=== PATIENT | male | born 1965 | race Caucasian/White ===

== ENCOUNTER → 2020-01-17 11:30 | Outpatient (CLI) | payer OTHER, SELFPAY ==
[2020-01-17 12:47] LABS: Influenza A - CEPHEID Flu A NEGATIVE (NEGATIVE); Influenza B - CEPHEID Flu B NEGATIVE (NEGATIVE)
[2020-01-26 20:19] LABS: COVID19 Sendout Not Detected (Not Detected)
== END ==
PROVIDERS: Visit Provider Nurse Practitioner
DX: R68.89 Other general symptoms and signs (principal)
CPT/HCPCS: 87502; 87635

== ENCOUNTER → 2020-05-28 15:13 | Outpatient (CLI) | payer OTHER, SELFPAY ==
[2020-05-29 19:24] LABS: COVID19 Sendout Not Detected (Not Detect)
== END ==
PROVIDERS: Visit Provider Physician Assistant
DX: Z01.812 Encounter for preprocedural laboratory examination (principal)
CPT/HCPCS: 87635

== ENCOUNTER 2020-05-31 14:38 | Day surgery (SDC) | payer OTHER, SELFPAY ==
--- NOTE | 2020-05-31 12:28 | PM.OP.ENDO ---
Operative Date/Time/Diagnoses Date of procedure: 05/31/20 Pre-op diagnosis: 1. History of colon polyps 2. Screening for colon cancer 3. History of drug use Post-op diagnosis: other (1. Normal colonoscopy) Procedure & Clinicians Study performed: Colonoscopy Same procedure as scheduled: Yes Indications: 1. History of colon polyps, possible 2. Screening for colon cancer 3. History of drug use Surgeon: Angeles Gonzalez Procedure Notes SCOAP/Timeout: 16:24 Procedure in detail: ENDOSCOPIST: Angeles Gonzalez MD Sedation RN: Ofelia Ta RN Sedation start time: 4:25 p.m. Sedation end time: 3:42 p.m. PRROCEDURE: Colonoscopy INDICATIONS: 1. History of colon polyps 2. Screening for cancer 3. History of drug use MEDICATION: Levsin 0.125 mg sublingual, incremental doses of Versed and fentanyl until appropriate level sedation achieved. ASA CLASS: 2 CECAL WITHDRAWAL TIME: 8 minutes COMPLICATIONS: None. EXTENT OF PROCEDURE: Cecum. QUALITY OF PREP: Good with portions of liquid stool. PROCEDURE: Prior to insertion of the colonoscope, a digital rectal examination was accomplished with circumferential palpation of the distal rectal mucosa without significant findings being noted. The high-definition colonoscope was passed into the rectum in the usual fashion and advanced over to the cecum without difficulty. The ileocecal valve, appendiceal stoma, and medial wall all could be inspected and no abnormalities were seen. ASCENDING COLON: As the colonoscope was withdrawn, care was taken to expose and inspect the haustral folds and no abnormalities were seen. HEPATIC FLEXURE: Normal no polyps, diverticula or other abnormalities. TRANSVERSE COLON: Normal no polyps, diverticula or other abnormalities. DESCENDING COLON: Normal no polyps, diverticula or other abnormalities. SIGMOID COLON: Normal no polyps, diverticula or other abnormalities. RECTUM: Normal. J maneuver was produced. There was no significant perianal disease. The J maneuver was broken. The remainder of the rectum was inspected and there was no external hemorrhoid disease. The scope was withdrawn. IMPRESSION: 1. Normal colonoscopy PLAN: 1. Repeat colonoscopy in 10 years. The possibility of a missed lesion including a malignancy has been discussed with the patient previously. Potential alarm symptoms have been discussed and should be reported immediately. Complications: none Post-procedure Recommendations: Colonscopy in 10 years Follow up: as needed Disposition: PACU
[2020-05-31] MEDS: HYOSCYAMINE 0.125 MG TABLET PO (14:55)
[2020-05-31 14:57] VITALS: BP 132/79; PULSE 84; RESP 16; TEMP 35.9; O2SAT 100; BMI 25.7
[2020-05-31] MEDS: LACTATED RINGERS 1,000 ML 200 ML IV (15:04)
[2020-05-31] MEDS: fentaNYL 250 MCG/5 ML INJ IV (16:46)
[2020-05-31] MEDS: MIDAZOLAM 5 MG/5 ML VIAL IV (16:47)
[2020-05-31 16:48] VITALS: BP 126/84; PULSE 67; RESP 12; TEMP 36.1; O2SAT 96
[2020-05-31 16:53] VITALS: BP 120/78; PULSE 66; RESP 10; O2SAT 93
--- NOTE | 2020-05-31 16:55 | SUR.PHASEI ---
Received to PACU at 1653 after MAC anesthesia. Airway patent, self maintained. Report received from ANTONIO Gilbert.
[2020-05-31 16:58] VITALS: BP 133/89; PULSE 77; RESP 18; O2SAT 96
[2020-05-31 17:03] VITALS: BP 133/85; PULSE 83; RESP 14; TEMP 36.1; O2SAT 97
[2020-05-31 17:18] VITALS: BP 118/82; PULSE 65; RESP 10; TEMP 36.1; O2SAT 97
== END 2020-05-31 17:25 | disposition home or self-care (01) ==
PROVIDERS: PCP Family Medicine; Referring Provider Student in an Organized Health Care Education/Training Program; Visit Provider Student in an Organized Health Care Education/Training Program
PROC: 0DJD8ZZ Inspection of Lower Intestinal Tract, Via Natural or Artificial Opening Endoscopic (ICD-10-PCS; CPT 45378; principal; 2020-05-31 15:30)
DX: Z12.11 Encounter for screening for malignant neoplasm of colon (principal); F19.11 Other psychoactive substance abuse, in remission
CPT/HCPCS: 45378; J2250; J3010

== ENCOUNTER → 2020-11-12 11:28 | Outpatient (CLI) | payer OTHER, SELFPAY ==
[2020-11-12 12:26] LABS: COVID19 -Nasal RAPID Negative (Negative)
--- NOTE | 2020-11-12 14:03 | DI.RAD.S_ITS ---
PROCEDURE: XR CHEST 2V INDICATIONS: cough x1.5 wks, chest tightness TECHNIQUE: 2 views of the chest were acquired. COMPARISON: [facility], CR, XR CHEST 1 VIEW, 03/21/2018, 10:17. FINDINGS: Surgical changes and devices: None. Lungs and pleura: Lungs are clear. No pleural effusions or pneumothorax. Mediastinum: Mediastinal contours are normal. Heart size is normal. Bones and chest wall: No suspicious bony abnormalities. Soft tissues appear unremarkable. IMPRESSION: No acute cardiopulmonary disease process. Dictated by: Laura Pompa MD, PhD on 11/12/2020 at 14:27 Approved by: Laura Pompa MD, PhD on 11/12/2020 at 14:28
[2020-11-12 14:18] LABS: Add Manual Diff / Slide Review NO; Basophils Absolute Auto 100 /uL (0-100); Basophils Percent Auto 1.7 % (0-2); Eosinophils Absolute Auto 200 /uL (0-450); Eosinophils Percent Auto 2.7 % (2-4); Hematocrit 46.1 % (41-53); Hemoglobin 16.4 g/dL (13.5-17.5); Lymphocytes Absolute Auto 1300 /uL (1100-4500); Lymphocytes Percent Auto 20.3 % (25-40); Mean Corpuscular HGB Conc 35.6 % (30-36); Mean Corpuscular Hemoglobin 32.4 PG (26-34); Monocytes Absolute Auto 500 /uL (0-900); Monocytes Percent Auto 8.3 % (3-14); Neutrophils Absolute Auto 4300 /uL (1500-7000); Platelet Count 179 X10^3/uL (150-400); Red Blood Cell Count 5.06 X10^6/uL (4.5-5.9); White Blood Cell Count 6.5 X10^3/uL (4.5-11.0)
[2020-11-12 14:34] LABS: Alanine Aminotransferase 21 IU/L (<50); Albumin 4.3 g/dL (3.5-5.0); Albumin Globulin Ratio 1.7 (1.0-2.8); Alkaline Phosphatase 77 U/L (38-126); Aspartate Aminotransferase 23 IU/L (17-59); BUN Creatinine Ratio 16.3 (6-22); Bilirubin Total 1.1 mg/dL (0.2-1.3); Blood Urea Nitrogen 16 mg/dL (9-20); Carbon Dioxide 34 mmol/L (22-32); Chloride 100 mmol/L (98-107); Creatine Kinase 38 U/L (55-170); Estimated Glomerular Filt Rate > 60.0 mL/min (>60); Globulin 2.5 g/dL (1.7-4.1); Glucose 153 mg/dL (70-100); HEMOLYSIS < 15 (0-50); Potassium 3.9 mmol/L (3.4-5.1); Sodium 138 mmol/L (137-145); Total Protein 6.8 g/dL (6.3-8.2)
[2020-11-12 14:45] LABS: NT-proBNP (BNP-Adult 18+) 21 pg/mL (<125); Troponin I < 0.012 ng/mL (0.01-0.034)
== END ==
PROVIDERS: PCP Family Medicine; Referring Provider Physician Assistant; Visit Provider Physician Assistant
DX: Z20.822 Contact with and (suspected) exposure to COVID-19 (principal); R05 Cough; R07.89 Other chest pain
CPT/HCPCS: 36415; 71046; 80053; 82550; 83880; 84484; 85025; 87635

== ENCOUNTER → 2021-07-08 13:26 | Outpatient (CLI) | payer OTHER, SELFPAY ==
--- NOTE | 2021-07-08 13:30 | DI.RAD.S_ITS ---
PROCEDURE: XR CHEST 2V INDICATIONS: cough, chest tightness TECHNIQUE: 2 views of the chest were acquired. COMPARISON: [facility], CR, XR CHEST 1 VIEW, 03/21/2018, 10:17. [facility], CR, XR CHEST 2V, 11/12/2020, 14:17. FINDINGS: Surgical changes and devices: None. Lungs and pleura: Lungs are clear. No pleural effusions or pneumothorax. Mediastinum: Mediastinal contours are normal. Heart size is normal. Bones and chest wall: No suspicious bony abnormalities. Age-appropriate bony degenerative changes are seen. Soft tissues appear unremarkable. IMPRESSION: No acute cardiopulmonary process is seen. No focal infiltrates are seen. Dictated by: Jose Antonio Olson M.D. on 07/08/2021 at 13:20 Approved by: Jose Antonio Olson M.D. on 07/08/2021 at 13:26
[2021-07-08 13:50] LABS: Add Manual Diff / Slide Review NO; Basophils Absolute Auto 0 /uL (0-100); Basophils Percent Auto 0.5 % (0-2); Eosinophils Absolute Auto 100 /uL (0-450); Eosinophils Percent Auto 1.1 % (2-4); Hematocrit 47.3 % (41-53); Hemoglobin 16.6 g/dL (13.5-17.5); Lymphocytes Absolute Auto 1300 /uL (1100-4500); Lymphocytes Percent Auto 19.3 % (25-40); Mean Corpuscular HGB Conc 35.1 % (30-36); Mean Corpuscular Volume 91.3 fL (80-100); Monocytes Absolute Auto 600 /uL (0-900); Monocytes Percent Auto 8.6 % (3-14); Neutrophils Absolute Auto 4600 /uL (1500-7000); Neutrophils Percent Auto 70.5 % (50-75); Platelet Count 175 X10^3/uL (150-400); Red Blood Cell Count 5.18 X10^6/uL (4.5-5.9); White Blood Cell Count 6.6 X10^3/uL (4.5-11.0)
[2021-07-08 14:10] LABS: Alanine Aminotransferase 25 IU/L (<50); Albumin 4.7 g/dL (3.5-5.0); Alkaline Phosphatase 75 U/L (38-126); Aspartate Aminotransferase 29 IU/L (17-59); Bilirubin Total 1.1 mg/dL (0.2-1.3); Blood Urea Nitrogen 15 mg/dL (9-20); Calcium 9.7 mg/dL (8.4-10.2); Carbon Dioxide 30 mmol/L (22-32); Chloride 102 mmol/L (98-107); Creatine Kinase 34 U/L (55-170); Estimated Glomerular Filt Rate > 60.0 mL/min (>60); Globulin 2.4 g/dL (1.7-4.1); Glucose 91 mg/dL (70-100); HEMOLYSIS < 15 (0-50); Potassium 4.4 mmol/L (3.4-5.1); Sodium 139 mmol/L (137-145); Total Protein 7.1 g/dL (6.3-8.2)
[2021-07-08 14:21] LABS: NT-proBNP (BNP-Adult 18+) 18 pg/mL (<125); Troponin I < 0.012 ng/mL (0.01-0.034)
== END ==
PROVIDERS: PCP Family Medicine; Referring Provider Physician Assistant; Visit Provider Physician Assistant
DX: R05 Cough (principal); R07.89 Other chest pain
CPT/HCPCS: 36415; 71046; 80053; 82550; 83880; 84484; 85025

== ENCOUNTER 2021-07-15 16:20 | Emergency (ER) | payer OTHER, SELFPAY ==
[2021-07-15 16:24] VITALS: BP 146/83; PULSE 75; RESP 18; TEMP 36.7; O2SAT 99
--- NOTE | 2021-07-15 16:29 | DI.RAD.S_ITS ---
PROCEDURE: XR CHEST 2V INDICATIONS: Cough TECHNIQUE: 2 views of the chest were acquired. COMPARISON: [facility], CR, XR CHEST 2V, 07/08/2021, 13:39. FINDINGS: Surgical changes and devices: None. Lungs and pleura: Lungs are clear. No pleural effusions or pneumothorax. Mediastinum: Mediastinal contours are normal. Heart size is normal. Bones and chest wall: No suspicious bony abnormalities. Soft tissues appear unremarkable. IMPRESSION: No acute cardiopulmonary process demonstrated radiographically. Dictated by: Earl Figueroa M.D. on 07/15/2021 at 16:50 Approved by: Earl Figueroa M.D. on 07/15/2021 at 16:50
[2021-07-15 18:21] LABS: Add Manual Diff / Slide Review NO; Basophils Absolute Auto 100 /uL (0-100); Basophils Percent Auto 0.9 % (0-2); Eosinophils Absolute Auto 100 /uL (0-450); Hematocrit 47.2 % (41-53); Hemoglobin 16.7 g/dL (13.5-17.5); Lymphocytes Absolute Auto 1800 /uL (1100-4500); Lymphocytes Percent Auto 24.5 % (25-40); Mean Corpuscular HGB Conc 35.3 % (30-36); Mean Corpuscular Hemoglobin 32.2 PG (26-34); Mean Corpuscular Volume 91.3 fL (80-100); Monocytes Absolute Auto 700 /uL (0-900); Monocytes Percent Auto 9.3 % (3-14); Neutrophils Absolute Auto 4600 /uL (1500-7000); Neutrophils Percent Auto 63.3 % (50-75); Platelet Count 186 X10^3/uL (150-400); Red Blood Cell Count 5.17 X10^6/uL (4.5-5.9); Red Cell Distribution Width 12.9 % (11.6-14.8); White Blood Cell Count 7.3 X10^3/uL (4.5-11.0)
[2021-07-15 18:32] LABS: Alanine Aminotransferase 24 IU/L (<50); Albumin 4.7 g/dL (3.5-5.0); Albumin Globulin Ratio 1.7 (1.0-2.8); Alkaline Phosphatase 82 U/L (38-126); Aspartate Aminotransferase 28 IU/L (17-59); Bilirubin Total 1.1 mg/dL (0.2-1.3); Blood Urea Nitrogen 15 mg/dL (9-20); Calcium 9.3 mg/dL (8.4-10.2); Carbon Dioxide 30 mmol/L (22-32); Chloride 102 mmol/L (98-107); Creatine Kinase 42 U/L (55-170); Estimated Glomerular Filt Rate > 60.0 mL/min (>60); Globulin 2.8 g/dL (1.7-4.1); Glucose 98 mg/dL (70-100); HEMOLYSIS < 15 (0-50); Lipase 48 U/L (23-300); Potassium 4.9 mmol/L (3.4-5.1); Sodium 139 mmol/L (137-145); Total Protein 7.5 g/dL (6.3-8.2)
[2021-07-15 18:43] LABS: Troponin I < 0.012 ng/mL (0.01-0.034)
[2021-07-15 18:58] LABS: NT-proBNP (BNP-Adult 18+) 23 pg/mL (<125)
[2021-07-15 21:05] VITALS: BP 133/77; PULSE 70; O2SAT 98
[2021-07-15 21:08] VITALS: BP 133/77; PULSE 71; O2SAT 99
[2021-07-15 21:19] LABS: COVID19 -Nasal RAPID Negative (Negative)
[2021-07-15 21:30] VITALS: PULSE 71; O2SAT 98
--- NOTE | 2021-07-15 21:39 | ED_ITS ---
HPI - General Adult General Chief complaint: Upper Respiratory Symptoms Stated complaint: congestion/fatigued x30 days Time Seen by Provider: 07/15/21 21:38 Source: patient Mode of arrival: Ambulatory History of Present Illness HPI narrative: 56-year-old gentleman on no current medications with a very distant history of IV drug use, hepatitis C treated in 2005 with resolution presents with fatigue, cough, a sense of congestion without actually any nasal or sinus discharge, feeling that he is hoarse with occasional flushing this has been going on for a month now. He has had 4- COVID tests. He describes some exertional dyspnea as well as some orthopnea neither symptom are consistent. He has not had any vomiting, abdominal pain or diarrhea. He reports no headaches, vision changes, numbness or tingling or any localizing weakness. He has had no palpitations. He describes no significant abdominal pain, change to bowel or bladder habits notes that he has had a screening colonoscopy that was unremarkable. He has been tested for HIV with his main risk factor being his distant IV drug use. Related Data Previous Rx's Medication Instructions Recorded albuterol sulfate 90 mcg/actuation 2 puff INHALATION Q4-6H PRN #8.5 g 11/13/20 aerosol inhaler Allergies Allergy/AdvReac Type Severity Reaction Status Date / Time acetaminophen [From Tylenol] Allergy Severe facial Verified 07/08/21 12:24 swelling, trouble breathing opiates AdvReac Mild Depression Uncoded 07/08/21 12:24 Review of Systems Review of Systems Narrative: Remainder of complete review of systems is otherwise unremarkable except for that included in the HPI. Patient History Medical History Chest tightness Social History household members: children Smoking Status: Former smoker alcohol intake: never Smoking Status: Former smoker Substance Use Type: does not use Exam Narrative Exam Narrative: General: Healthy appearing, in no acute distress. Able to give a complete and coherent history. Well-nourished well-developed HEENT: Moist mucous membranes, normal sclera with reactive pupils, slightly erythematous posterior pharynx and uvula. No cervical adenopathy Neck: No JVD, supple, no supraclavicular adenopathy Respiratory: Lungs are clear to auscultation, no wheezing no rales no rhonchi. Full and symmetrical air movement Cardiac: Regular rate and rhythm no murmurs no bruits Abdomen: Soft, nontender, good bowel tones, no hepatosplenomegaly, no flank pain. No inguinal adenopathy Skin: Warm and dry, no rashes Neurologic: Grossly neurologically intact with no obvious asymmetries or abnormalities Extremities: No trauma, well perfused, no lower extremity edema Psych: Cooperative, appropriate insight and affect Initial Vital Signs Initial Vital Signs: Vital Signs Temperature 98.1 F 07/15/21 16:24 Pulse Rate 75 07/15/21 16:24 Respiratory Rate 18 07/15/21 16:24 Blood Pressure 146/83 H 07/15/21 16:24 Pulse Oximetry 99 07/15/21 16:24 Course Orders Ordered: ED Orders 07/15/21 17:39 EKG-12 Lead Stat 07/15/21 18:09 BNP [NT-proBNP (BNP-Adult 18+)] Stat Complete Blood Count AUTO DIFF Stat Comprehensive Metabolic Panel Stat Lipase Stat Thyroid Stimulating Hormone Stat Troponin & CK Cardiac Panel Stat 07/15/21 20:39 COVID19 -Nasal swab/Pre-Proc Stat 07/15/21 22:01 Respiratory Panel (Film Array) Stat Vital Signs Vital signs: Vital Signs - 8 hr 07/15/21 21:05 07/15/21 21:08 07/15/21 21:30 Pulse Rate 70 71 71 Blood Pressure 133/77 133/77 Pulse Oximetry 98 99 98 07/15/21 22:00 Pulse Rate 72 Blood Pressure 138/96 H Pulse Oximetry 99 Medical Decision Making Lab Data Result diagrams: 07/15/21 18:09 07/15/21 18:09 Labs: Lab Results 07/15/21 07/15/21 07/15/21 Range/Units 18:09 18:09 18:09 WBC 7.3 (4.5-11.0) X10^3/uL RBC 5.17 (4.5-5.9) X10^6/uL Hgb 16.7 (13.5-17.5) g/dL Hct 47.2 (41-53) % MCV 91.3 (80-100) fL MCH 32.2 (26-34) PG MCHC 35.3 (30-36) % RDW 12.9 (11.6-14.8) % Plt Count 186 (150-400) X10^3/uL Neut % (Auto) 63.3 (50-75) % Lymph % (Auto) 24.5 L (25-40) % [place] % (Auto) 9.3 (3-14) % Eos % (Auto) 2.0 (2-4) % Baso % (Auto) 0.9 (0-2) % Neut # (Auto) 4600 (7635-0282) /uL Lymph # (Auto) 1800 (6825-5818) /uL [place] # (Auto) 700 (0-900) /uL Eos # (Auto) 100 (0-450) /uL Baso # (Auto) 100 (0-100) /uL Sodium 139 (137-145) mmol/L Potassium 4.9 (3.4-5.1) mmol/L Chloride 102 (98-107) mmol/L Carbon Dioxide 30 (22-32) mmol/L BUN 15 (9-20) mg/dL Creatinine 0.94 (0.66-1.25) mg/dL Estimated GFR > 60.0 (>60) mL/min BUN/Creatinine Ratio 16.0 (6-22) Glucose 98 (70-100) mg/dL Calcium 9.3 (8.4-10.2) mg/dL Total Bilirubin 1.1 (0.2-1.3) mg/dL AST 28 (17-59) IU/L ALT 24 (<50) IU/L Alkaline Phosphatase 82 (38-126) U/L Total Creatine Kinase 42 L (55-170) U/L CK-MB (CK-2) TNP CK-MB (CK-2) Rel Index TNP Troponin I < 0.012 (0.01-0.034) ng/mL NT-Pro-B Natriuret Pep 23 (<125) pg/mL Total Protein 7.5 (6.3-8.2) g/dL Albumin 4.7 (3.5-5.0) g/dL Globulin 2.8 (1.7-4.1) g/dL Albumin/Globulin Ratio 1.7 (1.0-2.8) Lipase 48 (23-300) U/L TSH (0.47-4.68) uIU/mL Chlamy pneumoniae PCR (Not Detect) Adenovirus (PCR) (Not Detect) B. pertussis DNA (PCR) (Not Detecte) B.parapertussis DNA PCR (Not Detecte) Coronavirus OC43 (PCR) (Not Detect) Coronavirus HKU1 (PCR) (Not Detect) Coronavirus 229E (PCR) (Not Detect) SARS-CoV-2 (PCR) (Negative) Coronavirus NL63 (PCR) (Not Detect) Human Metapneumovir PCR (Not Detect) Influenza Type A (PCR) (Not Detect) Influenza Type B (PCR) (Not Detect) M. pneumoniae (PCR) (Not Detect) Parainfluenza 1 (PCR) (Not Detect) Parainfluenza 2 (PCR) (Not Detect) Parainfluenza 3 (PCR) (Not Detect) Parainfluenza 4 (PCR) (Not Detect) RSV (PCR) (Not Detect) Entero/Rhino (PCR) (Not Detect) 07/15/21 07/15/21 07/15/21 Range/Units 18:09 20:39 22:01 WBC (4.5-11.0) X10^3/uL RBC (4.5-5.9) X10^6/uL Hgb (13.5-17.5) g/dL Hct (41-53) % MCV (80-100) fL MCH (26-34) PG MCHC (30-36) % RDW (11.6-14.8) % Plt Count (150-400) X10^3/uL Neut % (Auto) (50-75) % Lymph % (Auto) (25-40) % [place] % (Auto) (3-14) % Eos % (Auto) (2-4) % Baso % (Auto) (0-2) % Neut # (Auto) (1020-9433) /uL Lymph # (Auto) (0225-8107) /uL [place] # (Auto) (0-900) /uL Eos # (Auto) (0-450) /uL Baso # (Auto) (0-100) /uL Sodium (137-145) mmol/L Potassium (3.4-5.1) mmol/L Chloride (98-107) mmol/L Carbon Dioxide (22-32) mmol/L BUN (9-20) mg/dL Creatinine (0.66-1.25) mg/dL Estimated GFR (>60) mL/min BUN/Creatinine Ratio (6-22) Glucose (70-100) mg/dL Calcium (8.4-10.2) mg/dL Total Bilirubin (0.2-1.3) mg/dL AST (17-59) IU/L ALT (<50) IU/L Alkaline Phosphatase (38-126) U/L Total Creatine Kinase (55-170) U/L CK-MB (CK-2) CK-MB (CK-2) Rel Index Troponin I (0.01-0.034) ng/mL NT-Pro-B Natriuret Pep (<125) pg/mL Total Protein (6.3-8.2) g/dL Albumin (3.5-5.0) g/dL Globulin (1.7-4.1) g/dL Albumin/Globulin Ratio (1.0-2.8) Lipase (23-300) U/L TSH 2.58 (0.47-4.68) uIU/mL Chlamy pneumoniae PCR Not detected (Not Detect) Adenovirus (PCR) Not detected (Not Detect) B. pertussis DNA (PCR) Not detected (Not Detecte) B.parapertussis DNA PCR Not detected (Not Detecte) Coronavirus OC43 (PCR) Not detected (Not Detect) Coronavirus HKU1 (PCR) Not detected (Not Detect) Coronavirus 229E (PCR) Not detected (Not Detect) SARS-CoV-2 (PCR) Negative Not detected (Negative) Coronavirus NL63 (PCR) Not detected (Not Detect) Human Metapneumovir PCR Not detected (Not Detect) Influenza Type A (PCR) Not detected (Not Detect) Influenza Type B (PCR) Not detected (Not Detect) M. pneumoniae (PCR) Not detected (Not Detect) Parainfluenza 1 (PCR) Not detected (Not Detect) Parainfluenza 2 (PCR) Not detected (Not Detect) Parainfluenza 3 (PCR) Not detected (Not Detect) Parainfluenza 4 (PCR) Not detected (Not Detect) RSV (PCR) Not detected (Not Detect) Entero/Rhino (PCR) Not detected (Not Detect) Imaging Data Chest x-ray: Radiologist's Impression: FINDINGS: Surgical changes and devices: None. Lungs and pleura: Lungs are clear. No pleural effusions or pneumothorax. Mediastinum: Mediastinal contours are normal. Heart size is normal. Bones and chest wall: No suspicious bony abnormalities. Soft tissues appear unremarkable. IMPRESSION: No acute cardiopulmonary process demonstrated radiographically. Dictated by: Earl Figueroa M.D. on 07/15/2021 at 16:50 ECG Data Interpretation: Sinus rhythm at a rate of 73 Normal intervals, normal axis No acute ischemic changes MDM Narrative Medical decision making narrative: 56-year-old gentleman with a month of fatigue cough congestion and recurrent episodes of feeling flushed. With the intermittent hoarseness and symptoms as described some type of upper respiratory etiology seems most likely however symptoms lasting a month at this point seems a bit extreme. Will add a full respiratory panel to the blood work done today. Alternate explanations are not supported by current labs. No evidence of a nemia, heart failure, renal failure, liver failure, electrolyte abnormalities. No evidence acute coronary syndrome. Thyroid will be added to current labs but aside from the fatigue has no other symptoms of hypothyroidism. Careful clinical exam does not suggest other pathology or neoplastic processes that might deserve further workup. At this point, still the most likely etiology is resolving viral infection. Will contact him with results respiratory panel. Will ask her to follow-up with his primary care physician, Dr. Barnes. If he is continuing to have the fatigue and exertional dyspnea perhaps outpatient stress testing could be considered. At this time no life-threatening etiology is identified. He is safe for home discharge Discharge Plan Departure Patient Disposition: Home Clinical Impression: Cough Fatigue Qualifiers: Fatigue type: chronic, unspecified Qualified Code(s): R53.82 - Chronic fatigue, unspecified Instructions: DI for Fatigue Activity Restrictions/Additional Instructions: Thank you for coming in today Fortunately, I did not find a life-threatening explanation for your symptoms. Specifically of this is not COVID, I will let you know if the remainder of the respiratory panel suggests and another viral cause. I did not find any evidence for anemia, heart failure or acute coronary syndrome, no kidney or liver problems and your clinical exam does not suggest any specific cancer type finding that might explain your symptoms. With the cough and the hoarseness, an extended virus is still far and away the most likely diagnosis. Please do schedule appointment with Dr. Barnes to follow-up Prescriptions: No Action albuterol sulfate 90 mcg/actuation HFA aerosol inhaler 2 puff inhalation Q4-6H PRN (Reason: bronchospasm) Qty: 8.5 RF: 0 Referrals: Ness Barnes MD [Primary Care Provider] -
[2021-07-15 22:00] VITALS: BP 138/96; PULSE 72; O2SAT 99
[2021-07-15 22:40] LABS: Thyroid Stimulating Hormone 2.58 uIU/mL (0.47-4.68)
[2021-07-15 23:25] LABS: Adenovirus Not Detected (Not Detect); B. parapertussis Not Detected (Not Detecte); Bordetella pertussis Not Detected (Not Detecte); Chlamydophila pneumoniae Not Detected (Not Detect); Coronavirus 229E Not Detected (Not Detect); Coronavirus HKU1 Not Detected (Not Detect); Coronavirus NL 63 Not Detected (Not Detect); Coronavirus OC43 Not Detected (Not Detect); Human Metapneumovirus Not Detected (Not Detect); Human Rhinovirus/Enterovirus Not Detected (Not Detect); Influenza A Not Detected (Not Detect); Influenza B Not Detected (Not Detect); Mycoplasma pneumoniae Not Detected (Not Detect); Parainfluenza Virus 1 Not Detected (Not Detect); Parainfluenza Virus 2 Not Detected (Not Detect); Parainfluenza Virus 3 Not Detected (Not Detect); Parainfluenza Virus 4 Not Detected (Not Detect); Respiratory Syncytial Virus Not Detected (Not Detect); SARS- CoV-2 Not Detected (Not Detecte)
== END 2021-07-15 22:13 | disposition home or self-care (01) ==
PROVIDERS: Emergency Medicine; Emergency Provider Emergency Medicine; PCP Family Medicine
DX: R05 Cough (principal); R53.82 Chronic fatigue, unspecified; R06.00 Dyspnea, unspecified; R07.9 Chest pain, unspecified; Z20.822 Contact with and (suspected) exposure to COVID-19
CPT/HCPCS: 71046; 80053; 82550; 83690; 83880; 84443; 84484; 85025; 87633; 87635; 93005; 93010; 99283; 99284; C9803

== ENCOUNTER 2021-07-22 08:20 | Emergency (ER) | payer OTHER, SELFPAY ==
--- NOTE | 2021-07-22 08:27 | DI.RAD.S_ITS ---
PROCEDURE: XR CHEST 1V INDICATIONS: Cough, fatigue, shortness of breath TECHNIQUE: One view of the chest was acquired. COMPARISON: [facility], CR, XR CHEST 2V, 07/15/2021, 16:25. FINDINGS: Surgical changes and devices: None. Lungs and pleura: Lungs are clear. No pleural effusions or pneumothorax. Mediastinum: Mediastinal contours appear normal. Heart size is normal. Bones and chest wall: No suspicious bony lesions. Overlying soft tissues appear unremarkable. IMPRESSION: No acute cardiopulmonary pathology. Dictated by: Guicho Gonzalez M.D. on 07/22/2021 at 8:53 Approved by: Guicho Gonzalez M.D. on 07/22/2021 at 8:53
[2021-07-22 08:33] VITALS: BP 177/101; PULSE 73; RESP 12; TEMP 36.7; O2SAT 98; BMI 25.7
[2021-07-22 08:38] VITALS: PULSE 69; RESP 21; O2SAT 98
[2021-07-22 08:40] LABS: Add Manual Diff / Slide Review NO; Basophils Absolute Auto 100 /uL (0-100); Basophils Percent Auto 1.4 % (0-2); Eosinophils Absolute Auto 100 /uL (0-450); Eosinophils Percent Auto 2.3 % (2-4); Hematocrit 45.4 % (41-53); Hemoglobin 15.9 g/dL (13.5-17.5); Lymphocytes Absolute Auto 1500 /uL (1100-4500); Lymphocytes Percent Auto 25.7 % (25-40); Mean Corpuscular Hemoglobin 31.9 PG (26-34); Mean Corpuscular Volume 91.1 fL (80-100); Monocytes Absolute Auto 500 /uL (0-900); Monocytes Percent Auto 8.9 % (3-14); Neutrophils Absolute Auto 3600 /uL (1500-7000); Neutrophils Percent Auto 61.7 % (50-75); Platelet Count 162 X10^3/uL (150-400); Red Blood Cell Count 4.99 X10^6/uL (4.5-5.9); Red Cell Distribution Width 12.9 % (11.6-14.8); White Blood Cell Count 5.8 X10^3/uL (4.5-11.0)
--- NOTE | 2021-07-22 08:49 | PC.NURSE ---
Reports significant dizziness, worse with changes in position and head from side to side. Patient states he feels fatigued just standing in place. Left chest pain worse in last three days. Has outpatient cardiac tests this week and appt with PCP tomorrow. Patient states he is currently on abx for ear infection.
--- NOTE | 2021-07-22 08:51 | ED.CHESTPAIN ---
HPI - Chest Pain General Chief Complaint: Chest Pain Stated Complaint: chest pain/tightness, labored breath, fatigue Time Seen by Provider: 07/22/21 08:25 Source: patient Mode of arrival: Ambulatory History of Present Illness HPI narrative: Patient is a 56-year-old male who is here for evaluation of left-sided chest tightness to, fatigue, ringing in his ears, lightheadedness, labored breathing. His symptoms have been going on for least the past month. He has been seen here in the emergency department in the past and discharged home. He has talk with his primary doctor. He is scheduled for a ?lung test ?and a ultrasound of his heart later this week. There was also discussion about a stress test. He is currently on antibiotics for an ear infection that was prescribed by his primary doctor. He states that the symptoms that he presents with today are the same symptoms he has been having over the past month just this morning things seemed to get worse. Related Data Previous Rx's Medication Instructions Recorded albuterol sulfate 90 mcg/actuation 2 puff INHALATION Q4-6H PRN #8.5 g 11/13/20 aerosol inhaler Allergies Allergy/AdvReac Type Severity Reaction Status Date / Time acetaminophen [From Tylenol] Allergy Severe facial Verified 07/22/21 08:35 swelling, trouble breathing opiates AdvReac Mild Depression Uncoded 07/22/21 08:35 Review of Systems Constitutional Constitutional: Reports fatigue, Denies fever(s) and Reports malaise Eyes Eyes: Reports system reviewed and no additional complaints, except as documented ENT Comments: Tinnitus that is not new Cardiovascular Cardiovascular: Reports as per HPI and Reports system reviewed and no additional complaints, except as documented Respiratory Respiratory: Reports as per HPI and Reports system reviewed and no additional complaints, except as documented Gastrointestinal Gastrointestinal: Reports as per HPI and Reports system reviewed and no additional complaints, except as documented Genitourinary Genitourinary: Reports system reviewed and no additional complaints, except as documented Musculoskeletal Musculoskeletal: Reports system reviewed and no additional complaints, except as documented Integumentary/Breasts Skin/Breast: Reports system reviewed and no additional complaints, except as documented Neurologic Neurologic: Reports system reviewed and no additional complaints, except as documented Endocrine Endocrine: Reports fatigue Hematologic/Lymphatic On Anticoagulants: No Allergic/Immunologic Allergic/Immunologic: Reports system reviewed and no additional complaints, except as documented Patient History Medical History Chest tightness Social History household members: children Smoking Status: Former smoker alcohol intake: never Smoking Status: Former smoker Substance Use Type: does not use Exam Initial Vital Signs Initial Vital Signs: Vital Signs Temperature 98.0 F 07/22/21 08:33 Pulse Rate 73 07/22/21 08:33 Respiratory Rate 12 07/22/21 08:33 Blood Pressure 177/101 H 07/22/21 08:33 Pulse Oximetry 98 07/22/21 08:33 Const General: cooperative, healthy appearing, comfortable and well developed [facility] Head: normal to inspection and normocephalic Eyes General: appearance normal, both eyes and all related structures Chest Chest: normal inspection of the chest, No crepitus and No tenderness Resp Effort & Inspection: normal respiratory effort, not labored and not tachypneic Auscultation: clear to auscultation bilaterally Cardio Rate: regular rate Rhythm: regular rhythm GI Inspection: normal to inspection Palpation: soft, No firm and No tender Back/Spine/Pelvis Back: normal to inspection Skin Lesions: no lesions Rashes: no rashes Neuro General: patient alert, patient awake, patient oriented x3 and moves all extremities Extrem General: normal to inspection and No edema Psych Appearance: grossly normal and well kempt Course Orders Ordered: ED Orders 07/22/21 08:26 Complete Blood Count AUTO DIFF Stat 07/22/21 08:27 XR chest 1V Stat Lipase Stat NT-proBNP (BNP-Adult 18+) Stat Respiratory Panel (Film Array) Stat Troponin & CK Cardiac Panel Stat EKG-12 Lead Stat 07/22/21 08:50 Comprehensive Metabolic Panel Stat Ethanol (ETOH) Stat Vital Signs Vital signs: Vital Signs - 8 hr 07/22/21 08:33 Temperature 98.0 F Pulse Rate 73 Respiratory Rate 12 Blood Pressure 177/101 H Pulse Oximetry 98 MDM - Chest Pain Medical Records Data Attestation: I reviewed the patient's medical records. Lab Data Attestation: I reviewed the patient's lab results. Result diagrams: 07/22/21 08:26 07/22/21 08:50 Labs: Lab Results 07/22/21 07/22/21 07/22/21 Range/Units 08:26 08:27 08:50 WBC 5.8 (4.5-11.0) X10^3/uL RBC 4.99 (4.5-5.9) X10^6/uL Hgb 15.9 (13.5-17.5) g/dL Hct 45.4 (41-53) % MCV 91.1 (80-100) fL MCH 31.9 (26-34) PG MCHC 35.0 (30-36) % RDW 12.9 (11.6-14.8) % Plt Count 162 (150-400) X10^3/uL Neut % (Auto) 61.7 (50-75) % Lymph % (Auto) 25.7 (25-40) % Eaton % (Auto) 8.9 (3-14) % Eos % (Auto) 2.3 (2-4) % Baso % (Auto) 1.4 (0-2) % Neut # (Auto) 3600 (8417-1624) /uL Lymph # (Auto) 1500 (6779-8252) /uL Eaton # (Auto) 500 (0-900) /uL Eos # (Auto) 100 (0-450) /uL Baso # (Auto) 100 (0-100) /uL Sodium 141 (137-145) mmol/L Potassium 3.8 (3.4-5.1) mmol/L Chloride 103 (98-107) mmol/L Carbon Dioxide 33 H (22-32) mmol/L BUN 18 (9-20) mg/dL Creatinine 0.98 (0.66-1.25) mg/dL Estimated GFR > 60.0 (>60) mL/min BUN/Creatinine Ratio 18.4 (6-22) Glucose 94 (70-100) mg/dL Calcium 9.4 (8.4-10.2) mg/dL Total Bilirubin 1.2 (0.2-1.3) mg/dL AST 33 (17-59) IU/L ALT 18 (<50) IU/L Alkaline Phosphatase 77 (38-126) U/L Total Creatine Kinase 38 L (55-170) U/L CK-MB (CK-2) TNP CK-MB (CK-2) Rel Index TNP Troponin I < 0.012 (0.01-0.034) ng/mL NT-Pro-B Natriuret Pep 32 (<125) pg/mL Total Protein 7.0 (6.3-8.2) g/dL Albumin 4.4 (3.5-5.0) g/dL Globulin 2.6 (1.7-4.1) g/dL Albumin/Globulin Ratio 1.7 (1.0-2.8) Lipase 70 (23-300) U/L Ethyl Alcohol < 10 ( - 10) mg/dL Chlamy pneumoniae PCR (Not Detect) Adenovirus (PCR) (Not Detect) B. pertussis DNA (PCR) (Not Detecte) B.parapertussis DNA PCR (Not Detecte) Coronavirus OC43 (PCR) (Not Detect) Coronavirus HKU1 (PCR) (Not Detect) Coronavirus 229E (PCR) (Not Detect) SARS-CoV-2 (PCR) (Not Detecte) Coronavirus NL63 (PCR) (Not Detect) Human Metapneumovir PCR (Not Detect) Influenza Type A (PCR) (Not Detect) Influenza Type B (PCR) (Not Detect) M. pneumoniae (PCR) (Not Detect) Parainfluenza 1 (PCR) (Not Detect) Parainfluenza 2 (PCR) (Not Detect) Parainfluenza 3 (PCR) (Not Detect) Parainfluenza 4 (PCR) (Not Detect) RSV (PCR) (Not Detect) Entero/Rhino (PCR) (Not Detect) 07/22/21 Range/Units 08:53 WBC (4.5-11.0) X10^3/uL RBC (4.5-5.9) X10^6/uL Hgb (13.5-17.5) g/dL Hct (41-53) % MCV (80-100) fL MCH (26-34) PG MCHC (30-36) % RDW (11.6-14.8) % Plt Count (150-400) X10^3/uL Neut % (Auto) (50-75) % Lymph % (Auto) (25-40) % Eaton % (Auto) (3-14) % Eos % (Auto) (2-4) % Baso % (Auto) (0-2) % Neut # (Auto) (3389-8524) /uL Lymph # (Auto) (9042-1977) /uL Eaton # (Auto) (0-900) /uL Eos # (Auto) (0-450) /uL Baso # (Auto) (0-100) /uL Sodium (137-145) mmol/L Potassium (3.4-5.1) mmol/L Chloride (98-107) mmol/L Carbon Dioxide (22-32) mmol/L BUN (9-20) mg/dL Creatinine (0.66-1.25) mg/dL Estimated GFR (>60) mL/min BUN/Creatinine Ratio (6-22) Glucose (70-100) mg/dL Calcium (8.4-10.2) mg/dL Total Bilirubin (0.2-1.3) mg/dL AST (17-59) IU/L ALT (<50) IU/L Alkaline Phosphatase (38-126) U/L Total Creatine Kinase (55-170) U/L CK-MB (CK-2) CK-MB (CK-2) Rel Index Troponin I (0.01-0.034) ng/mL NT-Pro-B Natriuret Pep (<125) pg/mL Total Protein (6.3-8.2) g/dL Albumin (3.5-5.0) g/dL Globulin (1.7-4.1) g/dL Albumin/Globulin Ratio (1.0-2.8) Lipase (23-300) U/L Ethyl Alcohol ( - 10) mg/dL Chlamy pneumoniae PCR Not detected (Not Detect) Adenovirus (PCR) Not detected (Not Detect) B. pertussis DNA (PCR) Not detected (Not Detecte) B.parapertussis DNA PCR Not detected (Not Detecte) Coronavirus OC43 (PCR) Not detected (Not Detect) Coronavirus HKU1 (PCR) Not detected (Not Detect) Coronavirus 229E (PCR) Not detected (Not Detect) SARS-CoV-2 (PCR) Not detected (Not Detecte) Coronavirus NL63 (PCR) Not detected (Not Detect) Human Metapneumovir PCR Not detected (Not Detect) Influenza Type A (PCR) Not detected (Not Detect) Influenza Type B (PCR) Not detected (Not Detect) M. pneumoniae (PCR) Not detected (Not Detect) Parainfluenza 1 (PCR) Not detected (Not Detect) Parainfluenza 2 (PCR) Not detected (Not Detect) Parainfluenza 3 (PCR) Not detected (Not Detect) Parainfluenza 4 (PCR) Not detected (Not Detect) RSV (PCR) Not detected (Not Detect) Entero/Rhino (PCR) Not detected (Not Detect) Imaging Data Chest x-ray: Radiologist's Impression: [facility] [place] [id number] ReportSigned Patient: Carlos Ulloa II#: [id number]: 1965Acct:[id number]/Sex: 56 / MDate of Service: 07/22/21Loc: EDAccession Number: [id number] Procedure: XR chest 1V Ordering Provider: Richie Rodriguez D.O. PROCEDURE: XR CHEST 1V INDICATIONS: Cough, fatigue, shortness of breath TECHNIQUE: One view of the chest was acquired. COMPARISON: [facility], , XR CHEST 2V, 07/15/2021, 16:25. FINDINGS: Surgical changes and devices: None. Lungs and pleura: Lungs are clear. No pleural effusions or pneumothorax. Mediastinum: Mediastinal contours appear normal. Heart size is normal. Bones and chest wall: No suspicious bony lesions. Overlying soft tissues appear unremarkable. IMPRESSION: No acute cardiopulmonary pathology. Dictated by: Guicho Gonzalez M.D. on 07/22/2021 at 8:53 Approved by: Guicho Gonzalez M.D. on 07/22/2021 at 8:53 ECG Data Attestation: I personally reviewed and interpreted this ECG as follows: Interpretation: Sinus rhythm Ventricular rate is 65 Normal axis Normal QRS Normal QTC No ST T wave changes MDM Narrative Medical decision making narrative: Patient is had his presenting symptoms for the past several weeks. Was just worse this morning. His workup here in the emergency department is unremarkable. Respiratory panel negative, not in heart failure, low suspicion for ACS, no indication for a change in any antibiotics. He does have a appointment with his primary doctor artery scheduled for tomorrow and is scheduled to get further testing on this week. No emergent/life-threatening condition found on exam today. Will discharge patient home to keep his scheduled follow-up appointments. He is given return precautions. He expressed understanding and agreement. Discharge Plan Departure Patient Disposition: Home Clinical Impression: Atypical chest pain, Cough Instructions: DI for Atypical Chest Pain Activity Restrictions/Additional Instructions: I recommend that you keep your appointment that is already scheduled for tomorrow with your primary doctor and also on with your heart and lung testing. Continue all of your medications as directed. Return to the emergency department for any new or worsening symptoms. Prescriptions: No Action albuterol sulfate 90 mcg/actuation HFA aerosol inhaler 2 puff inhalation Q4-6H PRN (Reason: bronchospasm) Qty: 8.5 RF: 0 Referrals: Ness Barnes MD [Primary Care Provider] -
[2021-07-22 09:00] VITALS: PULSE 65; RESP 7; O2SAT 99
[2021-07-22 09:01] LABS: Creatine Kinase 38 U/L (55-170); Lipase 70 U/L (23-300)
[2021-07-22 09:02] LABS: Alanine Aminotransferase 18 IU/L (<50); Albumin 4.4 g/dL (3.5-5.0); Albumin Globulin Ratio 1.7 (1.0-2.8); Alkaline Phosphatase 77 U/L (38-126); Aspartate Aminotransferase 33 IU/L (17-59); BUN Creatinine Ratio 18.4 (6-22); Bilirubin Total 1.2 mg/dL (0.2-1.3); Blood Urea Nitrogen 18 mg/dL (9-20); Calcium 9.4 mg/dL (8.4-10.2); Carbon Dioxide 33 mmol/L (22-32); Chloride 103 mmol/L (98-107); Estimated Glomerular Filt Rate > 60.0 mL/min (>60); Ethanol (ETOH) < 10 mg/dL; Globulin 2.6 g/dL (1.7-4.1); Glucose 94 mg/dL (70-100); HEMOLYSIS 17 (0-50); Potassium 3.8 mmol/L (3.4-5.1); Sodium 141 mmol/L (137-145)
[2021-07-22 09:12] LABS: NT-proBNP (BNP-Adult 18+) 32 pg/mL (<125); Troponin I < 0.012 ng/mL (0.01-0.034)
[2021-07-22 09:30] VITALS: PULSE 63; RESP 8; O2SAT 97
[2021-07-22 09:43] LABS: Adenovirus Not Detected (Not Detect); B. parapertussis Not Detected (Not Detecte); Bordetella pertussis Not Detected (Not Detecte); Chlamydophila pneumoniae Not Detected (Not Detect); Coronavirus 229E Not Detected (Not Detect); Coronavirus HKU1 Not Detected (Not Detect); Coronavirus NL 63 Not Detected (Not Detect); Coronavirus OC43 Not Detected (Not Detect); Human Metapneumovirus Not Detected (Not Detect); Human Rhinovirus/Enterovirus Not Detected (Not Detect); Influenza A Not Detected (Not Detect); Influenza B Not Detected (Not Detect); Mycoplasma pneumoniae Not Detected (Not Detect); Parainfluenza Virus 1 Not Detected (Not Detect); Parainfluenza Virus 2 Not Detected (Not Detect); Parainfluenza Virus 3 Not Detected (Not Detect); Parainfluenza Virus 4 Not Detected (Not Detect); Respiratory Syncytial Virus Not Detected (Not Detect); SARS- CoV-2 Not Detected (Not Detecte)
[2021-07-22 10:00] VITALS: PULSE 61; RESP 8; O2SAT 98
[2021-07-22 10:11] VITALS: BP 131/86; PULSE 62; RESP 15; O2SAT 97
== END 2021-07-22 10:13 | disposition home or self-care (01) ==
PROVIDERS: Emergency Provider Emergency Medicine; PCP Family Medicine
DX: R07.89 Other chest pain (principal); R05 Cough; R53.83 Other fatigue; R06.02 Shortness of breath; Z20.822 Contact with and (suspected) exposure to COVID-19
CPT/HCPCS: 36415; 71045; 80053; 80320; 82550; 83690; 83880; 84484; 85025; 87633; 93005; 93010; 99284

== ENCOUNTER → 2021-07-24 08:59 | Outpatient (CLI) | payer OTHER, SELFPAY ==
--- NOTE | 2021-07-31 09:36 | PM.PFT.1 ---
Pulmonary Function Test Referral & Results Date Patient Seen: 07/24/21 Requesting provider: Ness Barnes Indication: Cough Results: The spirometry demonstrates an FVC of 5.10 L which is 98% of predicted. The FEV1 was measured at 3.74 L which is 94% of predicted. The FEV1/FVC ratio was 73 which is 96% of predicted. Following the administration of bronchodilator there was a 33% improvement in FEF 25-75% Lung volumes show an SVC of 5.36 L which is 105% of predicted. The diffusing capacity was measured at 28.67 which is 81% of predicted. The maximum voluntary ventilation was minimally reduced Interpretation: This study demonstrates normal spirometry although some minimal evidence of improvement small airway flow post bronchodilator based on change in FEF 25-75% There may be a minimal reduction in maximum voluntary ventilation as well which in the absence of significant abnormality of spirometry might suggest an element of neuromuscular disease Otherwise this is a normal study
== END ==
PROVIDERS: PCP Family Medicine; Referring Provider Family Medicine; Visit Provider Family Medicine
DX: R05 Cough (principal); J98.8 Other specified respiratory disorders; R53.82 Chronic fatigue, unspecified; Z87.891 Personal history of nicotine dependence
CPT/HCPCS: 93306; 94060; 94726; 94729

== ENCOUNTER → 2021-07-24 09:01 | Outpatient (CLI) | payer OTHER, SELFPAY ==
--- NOTE | 2021-07-24 | DI.ECHO.S_ITS ---
[facility] [place] +---------+ [facility] +---------+ : : [address] [place] : : : : [id number] : : : : Phone: [phone] Echocardiogram Report + + :Name: NICOLE LIANG Study Date: 07/24/2021 Height: 72 in : :[facility] ReadingLocation: Weight: 190 lb : : Gender: Male BSA: 2.1 m2 : :: 1965 Age: 56 yrs BP: 136/91 mmHg: :Reason For Study: COUGH : :Ordering Physician: SANYA, : :GATO Performed By: Cristino Malhotra : :Referring: GATO SEGUNDO : + + Interpretation Summary 1) Normal left ventricular thickness, size, wall motion, and systolic function (EF 55-60%). 2) Normal right ventricular size and function. 3) No significant valvular abnormalities. 4) The right ventricular systolic pressure is estimated to be at least 29 mmHg based on an estimated right atrial pressure of 3 mm Hg. 5) No prior Echo available for comparison. Procedure: A two-dimensional transthoracic echocardiogram with color flow and Doppler was performed. The study quality was technically adequate. There is no prior echocardiogram noted for this patient. Left Ventricle: The left ventricle is normal in size and wall thickness. Left ventricular systolic function is normal. The ejection fraction is estimated to be 55-60%. There are no focal wall motion abnormalities. Diastolic parameters suggest probable normal left ventricular diastolic function and normal filling pressures. Right Ventricle: The right ventricle is normal in size and function. Atria: Both atria are normal in size. There is no Doppler evidence for an interatrial shunt. Mitral Valve: The mitral valve is normal in structure and function. There is no mitral regurgitation noted. Aortic Valve: The aortic valve is normal in structure and function. There is no aortic valve stenosis. No aortic regurgitation is present. Tricuspid Valve: The tricuspid valve is normal in structure and function. There is mild tricuspid regurgitation. The right ventricular systolic pressure is estimated to be at least 29 mmHg based on an estimated right atrial pressure of 3 mm Hg. Pulmonic Valve: The pulmonic valve is normal in structure and function. There is no pulmonic valvular regurgitation. Great Vessels: The aortic root is normal size. The dimensions of the ascending aorta are normal. The IVC is of normal diameter and collapses greater than 50% with a sniff. This suggests a low right atrial pressure of 3 mm Hg. Pericardium/ Pleura There is no pericardial effusion. There is no pleural effusion. MMode/2D Measurements & Calculations LVIDd: 4.7 cm LVOT diam: 2.1 cm LVIDs: 3.0 cm Ao root diam: 3.6 cm FS: 36.2 % asc Aorta Diam: 3.3 cm IVSd: 0.80 cm LVPWd: 0.70 cm LV guy. diameter/BSA (cm/m^2): 2.3 LV sys. diameter/BSA (cm/m^2): 1.4 LA dimension: 2.8 cm RA long axis: 3.8 cm LA A2 area: 12.6 cm2 LA A4 area: 8.1 cm2 LA length (vol): 4.2 cm LA vol: 20.7 ml LA vol index: 9.9 ml/m2 TAPSE_phl: 2.2 cm Doppler Measurements & Calculations Ao V2 max: 136.0 cm/sec LVOT Max Naren: 126.0 cm/sec Ao V2 mean: 96.7 cm/sec LV V1 max P.4 mmHg Ao max P.0 mmHg LV V1 VTI: 25.0 cm Ao mean P.0 mmHg ADALID(I,D): 3.4 cm2 Ao V2 VTI: 25.5 cm ADALID(V,D): 3.2 cm2 sev ratio: 0.98 ADALID indexed to BSA (cm^2/m^2): 1.6 MV E max naren: 81.0 cm/sec TR max naren: 257.0 cm/sec MV A max naren: 90.3 cm/sec TR max P.4 mmHg MV E/A: 0.90 PA V2 max: 103.0 cm/sec Med Peak E' Naren: 7.2 cm/sec PA V2 mean: 64.9 cm/sec E/E' med: 11.2 PA mean P.0 mmHg Lat Peak E' Naren: 9.4 cm/sec PA pr(Accel): 45.7 mmHg E/E' lat: 8.6 E/e' average: 9.9 MV dec time: 0.30 sec SV(LVOT): 86.6 ml AV VR_phl: 0.93 ADALID(VTI)/BSA_phl: 1.6 MV P1/2t-pr_phl: 87.0 msec Reading Physician:12:33 PM
== END ==
PROVIDERS: PCP Family Medicine; Referring Provider Family Medicine; Visit Provider Family Medicine
DX: R05 Cough (principal); R53.82 Chronic fatigue, unspecified
CPT/HCPCS: 93306

== ENCOUNTER → 2021-09-08 14:17 | Outpatient (CLI) | payer OTHER, SELFPAY ==
[2021-09-08 16:17] LABS: COVID19 -Nasal RAPID Negative (Negative)
== END ==
PROVIDERS: PCP Family Medicine; Referring Provider Physician Assistant; Visit Provider Physician Assistant
DX: Z20.822 Contact with and (suspected) exposure to COVID-19 (principal); Z01.812 Encounter for preprocedural laboratory examination
CPT/HCPCS: 87635

== ENCOUNTER → 2021-09-10 07:39 | Outpatient (CLI) | payer OTHER, SELFPAY ==
--- NOTE | 2021-09-10 17:59 | DI.NM.S_ITS ---
DATE OF SERVICE: 09/10/2021 PROCEDURE PERFORMED: Exercise treadmill stress and rest myocardial perfusion imaging study with gating to assess ejection fraction and regional wall motion. ORDERING PROVIDER: Dr. Ness Barnes. INDICATIONS: The patient is a 56-year-old male with exertional dyspnea and chest tightness. EXERCISE TREADMILL TESTING: The patient was able to exercise for a total of 9 minutes, 1 second on a standard Gunner protocol, suggesting average exercise capacity with an JONI of +2%. He had a normal heart rate and blood pressure response to exercise, achieving a maximum heart rate of 140 BPM (86% of his predicted maximum). He had no chest discomfort or other anginal pain. His oxygen saturation levels remained greater than 95% on room air. His resting ECG shows sinus rhythm with normal ST segments. With stress, there is some mild, nonspecific ST- segment sagging that resolved within the first 30 seconds of recovery and thus is nonspecific. There were no arrhythmias. At 8 minutes of exercise at a heart rate of 136 BPM, 25.1 millicuries of technetium-99m Myoview was injected. The patient was imaged 10 minutes later using a gated SPECT acquisition protocol. Earlier in the day while at rest, he was injected with 12.5 millicuries of technetium-99m Myoview and was imaged 20 minutes later, again using a gated SPECT acquisition protocol. FINDINGS: 1. Raw data: There is fairly good myocardial tracer uptake. Lung/heart ratio was normal at 0.30 with a normal TID ratio of 0.79. 2. Quantitated gated SPECT: Post-stress ejection fraction is estimated at 70% without any focal wall motion abnormality. Resting ejection fraction is 72% with a normal resting end-diastolic volume of 108 mL. 3. Myocardial perfusion imaging: Post-stress supine images show a fairly normal myocardial perfusion pattern without any perfusion defects, supported by normal perfusion imaging in the prone position. The resting images show a similar perfusion pattern without any clear areas of improvement. IMPRESSION: 1. Normal myocardial perfusion study. 2. No evidence of myocardial ischemia or previous myocardial infarction. 3. Normal left ventricular systolic function without any focal wall motion abnormality. 4. Average exercise capacity without angina or ECG evidence of ischemia. There were no arrhythmias and he maintained oxygen saturation levels greater than 95% throughout exercise. Carlos Ulloa - DEANNA/zarina/ken doc#: [id number]/job#: [id number] dd: 09/10/2021 17:20:00 dt: 09/10/2021 17:45:00 DICTATING MD/COPIES TO: Binh Henson MD; Ness Barnes MD COPIES MNE: GAMALIEL;
== END ==
PROVIDERS: PCP Family Medicine; Referring Provider Family Medicine; Visit Provider Family Medicine
DX: R07.89 Other chest pain (principal); R06.09 Other forms of dyspnea; R53.83 Other fatigue; R05.9 Cough, unspecified
CPT/HCPCS: 78452; 93017; A9502

== ENCOUNTER → 2021-09-29 15:42 | Outpatient (CLI) | payer OTHER, SELFPAY ==
--- NOTE | 2021-09-29 15:44 | DI.CT.S_ITS ---
PROCEDURE: CT CHEST W CON INDICATIONS: Shortness of breath TECHNIQUE: After the administration of intravenous contrast, 5 mm thick sections acquired from the pulmonary apices to the posterior costophrenic angles. 1 mm axial lung, 5 mm thick coronal and sagittal reformats and 7 mm axial MIP were acquired. For radiation dose reduction, the following was used: automated exposure control, adjustment of mA and/or kV according to patient size. COMPARISON: [facility], CR, XR CHEST 1V, 07/22/2021, 8:41. FINDINGS: Image quality: There is streak artifact seen through the level of the shoulders. Lungs and pleura: No acute air space opacities. No pleural effusions or pneumothorax. Central and peripheral airways are patent and normal in caliber. Mediastinum: Heart size is normal. No pericardial effusion. No mediastinal or hilar adenopathy by size criteria. Thoracic aorta and central pulmonary arteries are normal in size. Esophagus is normal in caliber. No hiatal hernia. Bones and chest wall: No suspicious bony lesions. Age-appropriate bony degenerative changes are seen. No vertebral body compression fractures. No axillary or supraclavicular adenopathy by size criteria. Thyroid gland demonstrates no significant abnormality. Abdomen: Visualized upper abdominal solid organs appear normal. Upper abdominal bowel loops are normal in caliber. IMPRESSION: Unremarkable chest CT, without a cause of shortness of breath identified. Dictated by: Jose Antonio Olson M.D. on 09/29/2021 at 16:13 Approved by: Jose Antonio Olson M.D. on 09/29/2021 at 16:15
== END ==
PROVIDERS: PCP Family Medicine; Referring Provider Family Medicine; Visit Provider Family Medicine
DX: R06.02 Shortness of breath (principal); R06.2 Wheezing; R07.89 Other chest pain
CPT/HCPCS: 71260; Q9967

== ENCOUNTER 2024-02-21 18:24 | Emergency (ER) | payer OTHER, SELFPAY ==
[2024-02-21] VITALS (8 sets, daily range): BP systolic 156–173; BP diastolic 74–94; PULSE 58–67; RESP 16–30; TEMP 36.1; O2SAT 97–100; BMI 27.1
--- NOTE | 2024-02-21 18:47 | DI.RAD.S_ITS ---
PROCEDURE: XR CHEST 1V INDICATIONS: chest pain TECHNIQUE: One view of the chest was acquired. COMPARISON: [facility], CR, XR CHEST 1V, 07/22/2021, 8:41. [facility], CR, XR CHEST 2V, 07/15/2021, 16:25. FINDINGS: Surgical changes and devices: None. Lungs and pleura: No dense consolidation or pleural effusion. Mediastinum: Normal heart size. Bones and chest wall: Degenerative changes. IMPRESSION: No acute radiographic abnormality on this single view study. Dictated by: Gio Landeros M.D. on 02/21/2024 at 20:03 Approved by: Gio Landeros M.D. on 02/21/2024 at 20:04
[2024-02-21 19:06] LABS: Add Manual Diff / Slide Review NO; Basophils Absolute Auto 100 /uL (0-100); Basophils Percent Auto 0.8 % (0-2); Eosinophils Absolute Auto 200 /uL (0-450); Eosinophils Percent Auto 2.2 % (2-4); Hematocrit 44.7 % (41-53); Hemoglobin 16.1 g/dL (13.5-17.5); Lymphocytes Absolute Auto 1700 /uL (1100-4500); Mean Corpuscular Hemoglobin 32.8 PG (26-34); Mean Corpuscular Volume 91.1 fL (80-100); Monocytes Absolute Auto 600 /uL (0-900); Monocytes Percent Auto 7.4 % (3-14); Neutrophils Absolute Auto 6200 /uL (1500-7000); Neutrophils Percent Auto 70.6 % (50-75); Platelet Count 190 X10^3/uL (150-400); Red Cell Distribution Width 13.5 % (11.6-14.8); White Blood Cell Count 8.7 X10^3/uL (4.5-11.0)
[2024-02-21 19:11] LABS: Prothrombin Time 11.8 SECONDS (9.4-12.5)
[2024-02-21 19:13] LABS: PTT Partial Thromboplastin Tim 35 SECONDS (25.1-36.5)
[2024-02-21 19:15] LABS: Alanine Aminotransferase 20 IU/L (<50); Albumin 4.8 g/dL (3.5-5.0); Albumin Globulin Ratio 1.9 (1.0-2.8); Alkaline Phosphatase 77 U/L (38-126); Aspartate Aminotransferase 23 IU/L (17-59); BUN Creatinine Ratio 16.5 (6-22); Bilirubin Total 1.3 mg/dL (0.2-1.3); Blood Urea Nitrogen 17 mg/dL (9-20); Calcium 9.4 mg/dL (8.4-10.2); Carbon Dioxide 29 mmol/L (22-32); Chloride 103 mmol/L (98-107); Creatine Kinase 57 U/L (55-170); Estimated Glomerular Filt Rate > 60 mL/min (>60); Globulin 2.5 g/dL (1.7-4.1); Glucose 91 mg/dL (80-110); HEMOLYSIS < 15 (0-50); Lipase 57 U/L (23-300); Potassium 3.7 mmol/L (3.4-5.1); Sodium 138 mmol/L (137-145); Total Protein 7.3 g/dL (6.3-8.2)
[2024-02-21 19:26] LABS: Troponin I < 0.012 ng/mL (0.01-0.034)
--- NOTE | 2024-02-21 22:30 | ED.CHESTPAIN ---
HPI - Chest Pain General Chief Complaint: Chest Pain Stated Complaint: chest and back pain Time Seen by Provider: 02/21/24 21:36 Source: patient Mode of arrival: Ambulatory History of Present Illness HPI narrative: 59-year-old male with remote history of IV drug abuse, reports last use in the 90s presents for evaluation of 3 weeks back pain. Pain is in the center of his thoracic back, aggravating, constant. Has been taking ibuprofen at home with some relief, but since the pain has persisted he decided to present for evaluation. Denies numbness, weakness, difficulty ambulating, difficulty urinating. Patient reported chest pain in triage, he denies this to myself. Related Data Previous Rx's Medication Instructions Recorded albuterol sulfate 90 mcg/actuation 2 puff inhalation Q4-6H PRN 11/13/20 aerosol inhaler bronchospasm #8.5 grams methocarbamol 500 mg tablet 500 mg PO QID #30 tabs 02/22/24 Allergies Allergy/AdvReac Type Severity Reaction Status Date / Time acetaminophen [From Tylenol] Allergy Severe facial Verified 02/21/24 18:46 swelling, trouble breathing opiates AdvReac Mild Depression Uncoded 02/21/24 18:46 Review of Systems Review of Systems Narrative: See HPI Patient History Medical History Chest tightness Social History household members: children Smoking Status: Former smoker alcohol intake: never Smoking Status: Former smoker Substance Use Type: does not use Exam Initial Vital Signs Initial Vital Signs: Vital Signs Temperature 97.0 F L 02/21/24 18:44 Pulse Rate 65 02/21/24 18:44 Respiratory Rate 16 02/21/24 18:44 Blood Pressure 156/74 H 02/21/24 18:44 Pulse Oximetry 99 02/21/24 18:44 Oxygen Delivery Method Room Air 02/21/24 18:44 Const: Awake, alert, no acute distress, nontoxic appearing Cardiac: regular rate, regular rhythm MSK: pain in center of thoracic back, poorly located, mostly midline Skin: Warm, Dry, intact, no rashes Neuro: AO x3, CN II-XII grossly intact, moves all extremities Course Orders Ordered: Discontinued Medications Aspirin (Aspirin 81 Mg Chew Tab) 324 mg PO NOW ONE Stop: 02/21/24 18:48 Last Admin: 02/21/24 22:42 Dose: Not Given Documented By: JULIO CÉSAR Ketorolac Tromethamine (Ketorolac 30 Mg/Ml Vial) 15 mg IV NOW ONE Stop: 02/21/24 22:30 Last Admin: 02/21/24 22:39 Dose: 15 mg Documented By: JULIO CÉSAR Lidocaine (Lidocaine 5% Patch) 1 each TOP NOW ONE Stop: 02/22/24 00:10 Last Admin: 02/22/24 00:28 Dose: 1 each Documented By: LEANN Vital Signs Vital signs: Vital Signs - 8 hr 02/21/24 18:44 02/21/24 21:31 02/21/24 22:00 Temperature 97.0 F L Pulse Rate 65 63 58 L Respiratory Rate 16 26 H Blood Pressure 156/74 H Pulse Oximetry 99 99 100 Oxygen Delivery Method Room Air 02/21/24 22:30 02/21/24 22:31 02/21/24 22:37 Temperature Pulse Rate 67 64 Respiratory Rate 21 30 H Blood Pressure 173/94 H Pulse Oximetry 98 98 Oxygen Delivery Method 02/21/24 22:37 Temperature Pulse Rate 66 Respiratory Rate 22 Blood Pressure Pulse Oximetry 99 Oxygen Delivery Method Room Air MDM - Chest Pain Lab Data 02/21/24 18:56 02/21/24 18:56 Labs: Lab Results 02/21/24 02/21/24 Range/Units 18:47 18:56 WBC 8.7 (4.5-11.0) X10^3/uL RBC 4.90 (4.5-5.9) X10^6/uL Hgb 16.1 (13.5-17.5) g/dL Hct 44.7 (41-53) % MCV 91.1 (80-100) fL MCH 32.8 (26-34) PG MCHC 36.0 (30-36) % RDW 13.5 (11.6-14.8) % Plt Count 190 (150-400) X10^3/uL Neut % (Auto) 70.6 (50-75) % Lymph % (Auto) 19.0 L (25-40) % [place] % (Auto) 7.4 (3-14) % Eos % (Auto) 2.2 (2-4) % Baso % (Auto) 0.8 (0-2) % Neut # (Auto) 6200 (5153-1277) /uL Lymph # (Auto) 1700 (5057-0790) /uL [place] # (Auto) 600 (0-900) /uL Eos # (Auto) 200 (0-450) /uL Baso # (Auto) 100 (0-100) /uL ESR 2 (0-15) MM/HR PT 11.8 (9.4-12.5) SECONDS INR 1.0 (0.9-1.3) APTT 35 (25.1-36.5) SECONDS Sodium 138 (137-145) mmol/L Potassium 3.7 (3.4-5.1) mmol/L Chloride 103 (98-107) mmol/L Carbon Dioxide 29 (22-32) mmol/L BUN 17 (9-20) mg/dL Creatinine 1.03 (0.66-1.25) mg/dL Estimated GFR > 60 (>60) mL/min BUN/Creatinine Ratio 16.5 (6-22) Glucose 91 (80-110) mg/dL Calcium 9.4 (8.4-10.2) mg/dL Magnesium 2.0 (1.6-2.3) mg/dL Total Bilirubin 1.3 (0.2-1.3) mg/dL AST 23 (17-59) IU/L ALT 20 (<50) IU/L Alkaline Phosphatase 77 (38-126) U/L Total Creatine Kinase 57 (55-170) U/L Troponin I < 0.012 (0.01-0.034) ng/mL C-Reactive Protein < 0.5 (<1.0) mg/dL Total Protein 7.3 (6.3-8.2) g/dL Albumin 4.8 (3.5-5.0) g/dL Globulin 2.5 (1.7-4.1) g/dL Albumin/Globulin Ratio 1.9 (1.0-2.8) Lipase 57 (23-300) U/L Imaging Data CT - cervical spine: Radiologist's Impression: PROCEDURE: CT THORACIC SPINE W CON INDICATIONS: midline thoracic pain, remote hx ivda TECHNIQUE: After the administration of intravenous Isovue contrast, 3 mm thick sections acquired through the levels of interest. Sagittal and coronal reformats were then constructed. For radiation dose reduction, the following was used: automated exposure control. COMPARISON: None. FINDINGS: Image quality: Excellent. Bones: Visualized osseous structures of the thoracic spine and chest appear intact without acute fracture or malalignment. No suspicious osseous lesions. No acute compression fractures. No significant spondylitic changes. No significant bony or neuroforaminal stenosis. Soft tissues: Visualized portions of the lungs are clear. No adenopathy. No areas of abnormal enhancement. No evidence for aneurysmal dilatation of the imaged thoracic and abdominal aorta. No suspicious soft tissue mass or organized fluid collection. Normal appearance of the thyroid gland. No perispinal/paravertebral soft tissue mass lesions or acute inflammatory changes. IMPRESSION: Normal CT evaluation of the thoracic spine. No acute osseous abnormalities. No abnormal soft tissue findings or abnormal enhancement. No organized fluid collection seen. Dictated by: Quirino Francis M.D. on 02/21/2024 at 23:51 Approved by: Quirino Francis M.D. on 02/21/2024 at 23:55 MDM Narrative Medical decision making narrative: Well-appearing patient with 3 weeks of persistent back pain. He reports that pain is most in the midline of his thorax but it was poorly localized and difficult to pinpoint. No Neurologic symptoms. Patient declined pain medications since ?they gave me depression?. Since patient reported chest pain in triage laboratory work was ordered, which showed normal troponins and unremarkable blood work profile. CT of the thoracic spine did not reveal any abnormalities. This is quite possibly a muscle spasm. Patient was counseled that he may continue to take ibuprofen as needed and muscle relaxers added. Gentle stretching exercises advised to help relieve pain. Discharge Plan Departure Patient Disposition: Home Clinical Impression: Back pain, thoracic Qualifiers: Chronicity: acute Back pain laterality: midline Qualified Code(s): M54.6 - Pain in thoracic spine Instructions: DI for Thoracic Back Pain Activity Restrictions/Additional Instructions: Take tylenol and motrin for pain, the muscle relaxers may also help your pain. Follow up with a primary care doctor. Prescriptions: New methocarbamol 500 mg tablet 500 mg PO QID Qty: 30 0RF No Action albuterol sulfate 90 mcg/actuation HFA aerosol inhaler 2 puff inhalation Q4-6H PRN (Reason: bronchospasm) Qty: 8.5 0RF Referrals: Miscellaneous,DoctorMD [Primary Care Provider] - Stand Alone Forms: Patient Portal/API
[2024-02-21] MEDS: KETOROLAC 30 MG/ML VIAL 15 MG IV (22:39)
[2024-02-21 23:36] LABS: C-Reactive Protein Quant < 0.5 mg/dL (<1.0); Erythrocyte Sedimentation Rate 2 MM/HR (0-15)
[2024-02-22] VITALS: PULSE 60; RESP 16; O2SAT 98
[2024-02-22] MEDS: LIDOCAINE 5% PATCH 1 EACH TOP (00:28)
[2024-02-22 00:29] VITALS: BP 152/99; PULSE 66; RESP 16; O2SAT 98
== END 2024-02-22 00:31 | disposition home or self-care (01) ==
PROVIDERS: Emergency Provider Emergency Medicine
DX: M54.6 Pain in thoracic spine (principal); R03.0 Elevated blood-pressure reading, without diagnosis of hypertension
CPT/HCPCS: 36415; 71045; 72129; 80053; 82550; 83690; 83735; 84484; 85025; 85610; 85651; 85730; 86140; 93005; 96374; 99284; J1885; Q9967

== ENCOUNTER 2024-02-25 06:33 | Emergency (ER) | payer OTHER, SELFPAY ==
[2024-02-25 06:38] VITALS: BP 186/99; PULSE 65; RESP 18; TEMP 35.5; O2SAT 98; BMI 27.1
--- NOTE | 2024-02-25 06:40 | ED.BACK ---
HPI - Back Pain/Injury <DO Juliana Li Last Filed: 02/26/24 00:01> General Chief Complaint: Back Pain/Injury Stated Complaint: back pain Time Seen by Provider: 02/25/24 06:40 History of Present Illness HPI Narrative: Patient is a 59-year-old male without significant past medical history presenting today for the 2nd time this week for ongoing thoracic back pain. He reports that he thinks he maybe injured it while getting a cardiac out. It is definitely reproducible with movement. He reports some relief with ibuprofen and heating pad. No nausea vomiting. He was seen evaluated here 02/21/2024 he had significant workup including CT scan of the thoracic spine, blood work including CRP troponin and EKG. He reports that he is also getting some relief with lidocaine patches. He reports some grayish stool after starting methocarbamol and ibuprofen. He has not dizzy or lightheaded. He says he has just not getting any better. He does not want any narcotic medications due to remote history of IVDA. Related Data Previous Rx's Medication Instructions Recorded albuterol sulfate 90 mcg/actuation 2 puff inhalation Q4-6H PRN 11/13/20 aerosol inhaler bronchospasm #8.5 grams methocarbamol 500 mg tablet 500 mg PO QID #30 tabs 02/22/24 meloxicam 7.5 mg tablet 7.5 mg PO DAILY #60 tabs 02/25/24 Allergies Allergy/AdvReac Type Severity Reaction Status Date / Time acetaminophen [From Tylenol] Allergy Severe facial Verified 02/21/24 18:46 swelling, trouble breathing opiates AdvReac Mild Depression Uncoded 02/21/24 18:46 Patient History <DO Juliana Li Last Filed: 02/26/24 00:01> Medical History Chest tightness Social History household members: children Smoking Status: Former smoker alcohol intake: never Smoking Status: Former smoker Substance Use Type: does not use Exam <DO Juliana Li Last Filed: 02/26/24 00:01> Initial Vital Signs Initial Vital Signs: Vital Signs Temperature 96 F L 02/25/24 06:38 Pulse Rate 65 02/25/24 06:38 Respiratory Rate 18 02/25/24 06:38 Blood Pressure 186/99 H 02/25/24 06:38 Pulse Oximetry 98 02/25/24 06:38 Oxygen Delivery Method Room Air 02/25/24 06:38 GENERAL: Alert pleasant 59-year-old male and in no acute distress. HEENT: Head atraumatic,EOMI, pupils reactive, face symmetric, moist mucous membranes CARDIOVASCULAR: Regular rate and rhythm without murmurs, rubs or gallops. RESPIRATORY: Breath sounds equal bilaterally, no wheezes rales or rhonchi. ABDOMEN: Soft, nontender. Normoactive bowel sounds all 4 quadrants. No guarding or rebound. BACK: No vertebral tenderness no step-off EXTREMITIES: Normal range of motion, no clubbing or edema. Neurovascularly intact NEUROLOGICAL: Alert and oriented x4, tender left paraspinal muscle reproducible to palpation SKIN: Warm, dry, no laceration, no petechiae, no rashes or lesions. <DO Juliana Marvin Last Filed: 02/25/24 08:37> Initial Vital Signs Initial Vital Signs: Vital Signs Temperature 96 F L 02/25/24 06:38 Pulse Rate 65 02/25/24 06:38 Respiratory Rate 18 02/25/24 06:38 Blood Pressure 186/99 H 02/25/24 06:38 Pulse Oximetry 98 02/25/24 06:38 Oxygen Delivery Method Room Air 02/25/24 06:38 Course <Magaly Cheema DO - Last Filed: 02/26/24 00:01> Orders Ordered: Discontinued Medications Ketorolac Tromethamine (Ketorolac 30 Mg/Ml Vial) 30 mg IV NOW ONE Stop: 02/25/24 07:32 Last Admin: 02/25/24 07:47 Dose: 30 mg Documented By: RON Vital Signs Vital signs: Vital Signs - 8 hr 02/25/24 06:38 02/25/24 07:29 02/25/24 07:30 Temperature 96 F L Pulse Rate 65 59 L 60 Respiratory Rate 18 Blood Pressure 186/99 H Pulse Oximetry 98 100 99 Oxygen Delivery Method Room Air 02/25/24 07:30 Temperature Pulse Rate Respiratory Rate Blood Pressure 151/102 H Pulse Oximetry Oxygen Delivery Method <DO Juliana Marvin Last Filed: 02/25/24 08:37> Orders Ordered: Discontinued Medications Ketorolac Tromethamine (Ketorolac 30 Mg/Ml Vial) 30 mg IV NOW ONE Stop: 02/25/24 07:32 Last Admin: 02/25/24 07:47 Dose: 30 mg Documented By: RON Vital Signs Vital signs: Vital Signs - 8 hr 02/25/24 06:38 02/25/24 07:29 02/25/24 07:30 Temperature 96 F L Pulse Rate 65 59 L 60 Respiratory Rate 18 Blood Pressure 186/99 H Pulse Oximetry 98 100 99 Oxygen Delivery Method Room Air 02/25/24 07:30 Temperature Pulse Rate Respiratory Rate Blood Pressure 151/102 H Pulse Oximetry Oxygen Delivery Method MDM - Back Pain/Injury <Magaly Cheema DO - Last Filed: 02/26/24 00:01> Lab Data 02/25/24 07:52 02/25/24 07:52 Labs: Lab Results 02/25/24 Range/Units 07:52 WBC 8.0 (4.5-11.0) X10^3/uL RBC 4.86 (4.5-5.9) X10^6/uL Hgb 15.9 (13.5-17.5) g/dL Hct 44.3 (41-53) % MCV 91.0 (80-100) fL MCH 32.7 (26-34) PG MCHC 35.9 (30-36) % RDW 13.2 (11.6-14.8) % Plt Count 174 (150-400) X10^3/uL Neut % (Auto) 74.7 (50-75) % Lymph % (Auto) 13.7 L (25-40) % [place] % (Auto) 8.4 (3-14) % Eos % (Auto) 1.9 L (2-4) % Baso % (Auto) 1.3 (0-2) % Neut # (Auto) 6000 (8691-5172) /uL Lymph # (Auto) 1100 (8580-9773) /uL [place] # (Auto) 700 (0-900) /uL Eos # (Auto) 100 (0-450) /uL Baso # (Auto) 100 (0-100) /uL Sodium 138 (137-145) mmol/L Potassium 4.0 (3.4-5.1) mmol/L Chloride 105 (98-107) mmol/L Carbon Dioxide 29 (22-32) mmol/L BUN 19 (9-20) mg/dL Creatinine 0.99 (0.66-1.25) mg/dL Estimated GFR > 60 (>60) mL/min BUN/Creatinine Ratio 19.2 (6-22) Glucose 106 (80-110) mg/dL Calcium 9.2 (8.4-10.2) mg/dL Total Bilirubin 1.1 (0.2-1.3) mg/dL AST 24 (17-59) IU/L ALT 19 (<50) IU/L Alkaline Phosphatase 79 (38-126) U/L Total Creatine Kinase 114 (55-170) U/L Troponin I < 0.012 (0.01-0.034) ng/mL Total Protein 6.9 (6.3-8.2) g/dL Albumin 4.3 (3.5-5.0) g/dL Globulin 2.6 (1.7-4.1) g/dL Albumin/Globulin Ratio 1.7 (1.0-2.8) Lipase 75 (23-300) U/L MDM Narrative Medical decision making narrative: Patient 59-year-old male presents today with ongoing back pain. He did move a cardiac but pain is persistent. He has not wanting opiate medications due to previous opiate abuse. He has been taking ibuprofen ibuprofen was helping however not helping now. He did have previous blood work and CT scan which were otherwise normal and presumed musculoskeletal. He has been taking methocarbamol for pain. Pain definitely comes and goes in waves. He is nontender in his kidneys I think unlikely to be a kidney stone. He has given a dose of Toradol signed out to Dr. Rodriguez for further evaluation Dr rodriguez: Received turned over. Review patient's history and physical and workup up to this point. Patient was here a couple days ago for very similar symptoms. Had a CT scan performed. Had x-ray performed. Labs. Diagnosis musculoskeletal. Is back for similar symptoms. No rashes concerning for zoster. Equal pulses bilaterally. The CT scan from the other day showed no aortic aneurysms. His pain does seem to come and go. Considered other etiologies such as dissection but I feel that this is unlikely based on his presentation today. His EKGs unremarkable. Troponin is negative. He does have follow-up appointment with his primary doctor scheduled for next month. We will switch him from ibuprofen to Mobic. He is going to stop the Robaxin to see if his symptoms worsen and see if this medication is working for him at all. Provided reassurance to the patient. He was given return precautions and follow-up instructions. He expressed understanding and agreement. <Richie Rodriguez, DO - Last Filed: 02/25/24 08:37> Lab Data Labs: Lab Results 02/25/24 Range/Units 07:52 WBC 8.0 (4.5-11.0) X10^3/uL RBC 4.86 (4.5-5.9) X10^6/uL Hgb 15.9 (13.5-17.5) g/dL Hct 44.3 (41-53) % MCV 91.0 (80-100) fL MCH 32.7 (26-34) PG MCHC 35.9 (30-36) % RDW 13.2 (11.6-14.8) % Plt Count 174 (150-400) X10^3/uL Neut % (Auto) 74.7 (50-75) % Lymph % (Auto) 13.7 L (25-40) % [place] % (Auto) 8.4 (3-14) % Eos % (Auto) 1.9 L (2-4) % Baso % (Auto) 1.3 (0-2) % Neut # (Auto) 6000 (6414-4223) /uL Lymph # (Auto) 1100 (6590-0190) /uL [place] # (Auto) 700 (0-900) /uL Eos # (Auto) 100 (0-450) /uL Baso # (Auto) 100 (0-100) /uL Sodium 138 (137-145) mmol/L Potassium 4.0 (3.4-5.1) mmol/L Chloride 105 (98-107) mmol/L Carbon Dioxide 29 (22-32) mmol/L BUN 19 (9-20) mg/dL Creatinine 0.99 (0.66-1.25) mg/dL Estimated GFR > 60 (>60) mL/min BUN/Creatinine Ratio 19.2 (6-22) Glucose 106 (80-110) mg/dL Calcium 9.2 (8.4-10.2) mg/dL Total Bilirubin 1.1 (0.2-1.3) mg/dL AST 24 (17-59) IU/L ALT 19 (<50) IU/L Alkaline Phosphatase 79 (38-126) U/L Total Creatine Kinase 114 (55-170) U/L Troponin I < 0.012 (0.01-0.034) ng/mL Total Protein 6.9 (6.3-8.2) g/dL Albumin 4.3 (3.5-5.0) g/dL Globulin 2.6 (1.7-4.1) g/dL Albumin/Globulin Ratio 1.7 (1.0-2.8) Lipase 75 (23-300) U/L ECG Data Interpretation: Sinus rhythm Ventricular rate is 64 Normal axis Normal QRS Normal QTC No ST T wave changes MDM Narrative Medical decision making narrative: Dr rodriguez: Received turned over. Review patient's history and physical and workup up to this point. Patient was here a couple days ago for very similar symptoms. Had a CT scan performed. Had x-ray performed. Labs. Diagnosis musculoskeletal. Is back for similar symptoms. No rashes concerning for zoster. Equal pulses bilaterally. The CT scan from the other day showed no aortic aneurysms. His pain does seem to come and go. Considered other etiologies such as dissection but I feel that this is unlikely based on his presentation today. His EKGs unremarkable. Troponin is negative. He does have follow-up appointment with his primary doctor scheduled for next month. We will switch him from ibuprofen to Mobic. He is going to stop the Robaxin to see if his symptoms worsen and see if this medication is working for him at all. Provided reassurance to the patient. He was given return precautions and follow-up instructions. He expressed understanding and agreement. Discharge Plan Departure Patient Disposition: Home Clinical Impression: Back pain Instructions: DI for Back Spasm Activity Restrictions/Additional Instructions: Recommend that you stop taking the ibuprofen/Motrin and start taking the new medication that you were prescribed today. Keep your scheduled appointment with your primary doctor and follow-up. Return to the emergency department for new symptoms. Prescriptions: New meloxicam 7.5 mg tablet 7.5 mg PO DAILY Qty: 60 0RF No Action albuterol sulfate 90 mcg/actuation HFA aerosol inhaler 2 puff inhalation Q4-6H PRN (Reason: bronchospasm) Qty: 8.5 0RF methocarbamol 500 mg tablet 500 mg PO QID Qty: 30 0RF Referrals: Miscellaneous,Doctor, MD [Primary Care Provider] - Stand Alone Forms: Patient Portal/API
[2024-02-25 07:29] VITALS: PULSE 59; O2SAT 100
[2024-02-25 07:30] VITALS: BP 151/102; PULSE 60; O2SAT 99
[2024-02-25] MEDS: KETOROLAC 30 MG/ML VIAL IV (07:47)
[2024-02-25 08:02] LABS: Add Manual Diff / Slide Review NO; Basophils Absolute Auto 100 /uL (0-100); Basophils Percent Auto 1.3 % (0-2); Eosinophils Absolute Auto 100 /uL (0-450); Eosinophils Percent Auto 1.9 % (2-4); Hematocrit 44.3 % (41-53); Hemoglobin 15.9 g/dL (13.5-17.5); Lymphocytes Absolute Auto 1100 /uL (1100-4500); Lymphocytes Percent Auto 13.7 % (25-40); Mean Corpuscular HGB Conc 35.9 % (30-36); Mean Corpuscular Hemoglobin 32.7 PG (26-34); Monocytes Absolute Auto 700 /uL (0-900); Monocytes Percent Auto 8.4 % (3-14); Neutrophils Absolute Auto 6000 /uL (1500-7000); Neutrophils Percent Auto 74.7 % (50-75); Platelet Count 174 X10^3/uL (150-400); Red Blood Cell Count 4.86 X10^6/uL (4.5-5.9); Red Cell Distribution Width 13.2 % (11.6-14.8)
[2024-02-25 08:04] VITALS: PULSE 69; RESP 21
[2024-02-25 08:11] LABS: Alanine Aminotransferase 19 IU/L (<50); Albumin 4.3 g/dL (3.5-5.0); Albumin Globulin Ratio 1.7 (1.0-2.8); Alkaline Phosphatase 79 U/L (38-126); Aspartate Aminotransferase 24 IU/L (17-59); BUN Creatinine Ratio 19.2 (6-22); Bilirubin Total 1.1 mg/dL (0.2-1.3); Blood Urea Nitrogen 19 mg/dL (9-20); Calcium 9.2 mg/dL (8.4-10.2); Carbon Dioxide 29 mmol/L (22-32); Chloride 105 mmol/L (98-107); Creatine Kinase 114 U/L (55-170); Estimated Glomerular Filt Rate > 60 mL/min (>60); Globulin 2.6 g/dL (1.7-4.1); Glucose 106 mg/dL (80-110); HEMOLYSIS < 15 (0-50); Lipase 75 U/L (23-300); Sodium 138 mmol/L (137-145); Total Protein 6.9 g/dL (6.3-8.2)
[2024-02-25 08:23] LABS: Troponin I < 0.012 ng/mL (0.01-0.034)
[2024-02-25 08:30] VITALS: BP 172/104; PULSE 70; RESP 20; O2SAT 98
== END 2024-02-25 08:45 | disposition home or self-care (01) ==
PROVIDERS: Emergency Provider Emergency Medicine
DX: M54.6 Pain in thoracic spine (principal); R03.0 Elevated blood-pressure reading, without diagnosis of hypertension
CPT/HCPCS: 36415; 80053; 82550; 83690; 84484; 85025; 93005; 96374; 99284; J1885

== ENCOUNTER 2024-02-27 08:59 | Emergency (ER) | payer OTHER, SELFPAY ==
[2024-02-27 09:05] VITALS: BP 121/83; PULSE 94; RESP 18; TEMP 36.3; O2SAT 99; BMI 27.1
[2024-02-27 09:30] LABS: Add Manual Diff / Slide Review NO; Basophils Absolute Auto 100 /uL (0-100); Basophils Percent Auto 1.2 % (0-2); Eosinophils Absolute Auto 200 /uL (0-450); Eosinophils Percent Auto 2.3 % (2-4); Hematocrit 42.3 % (41-53); Lymphocytes Absolute Auto 1500 /uL (1100-4500); Mean Corpuscular HGB Conc 35.4 % (30-36); Mean Corpuscular Hemoglobin 32.3 PG (26-34); Mean Corpuscular Volume 91.1 fL (80-100); Monocytes Absolute Auto 600 /uL (0-900); Neutrophils Absolute Auto 5500 /uL (1500-7000); Neutrophils Percent Auto 69.5 % (50-75); Platelet Count 190 X10^3/uL (150-400); Red Blood Cell Count 4.64 X10^6/uL (4.5-5.9); Red Cell Distribution Width 13.5 % (11.6-14.8); White Blood Cell Count 7.9 X10^3/uL (4.5-11.0)
--- NOTE | 2024-02-27 09:32 | ED_ITS ---
HPI - GI Bleed General Chief complaint: GI Bleed Stated complaint: internal bleed per pt Time Seen by Provider: 02/27/24 09:11 Source: patient Mode of arrival: Ambulatory Limitations: no limitations History of Present Illness HPI Narrative: 59-year-old male who presents with complaint of black tarry stool was seen twice in the past 5 days with complaint of thoracic back pain had workup with labs CT scan. Patient has been on methocarbamol and seeking ibuprofen and recently meloxicam daily. Patient notes his back pain has been improving he has been using heat with vibratory pad on his back which is helpful. Patient states he stopped taking meloxicam 2 days ago. He states no fevers. No chest pain or shortness of breath. States back pain has been improving but has not resolved. He states occasionally gets some abdominal pain. He has had some occasional nausea but no vomiting. He is noted black tarry stools past 2 days which he describes as well formed. He states 1 bowel movement each day. He denies any urinary symptoms. He notes no other daily prescription medication. He has not been taking any iron supplements or Pepto-Bismol. Does have a history of ulcers but states he did have GI bleeding many years ago after ingesting a pill covered in heroin that caused a lot of vomiting. Patient states no tobacco, no regular alcohol, has been sober since the . Patient is in between primary care physicians. Related Data Previous Rx's Medication Instructions Recorded albuterol sulfate 90 mcg/actuation 2 puff inhalation Q4-6H PRN 11/13/20 aerosol inhaler bronchospasm #8.5 grams methocarbamol 500 mg tablet 500 mg PO QID #30 tabs 02/22/24 meloxicam 7.5 mg tablet 7.5 mg PO DAILY #60 tabs 02/25/24 famotidine 40 mg tablet (Pepcid) 40 mg PO DAILY #30 tabs 02/27/24 Allergies Allergy/AdvReac Type Severity Reaction Status Date / Time acetaminophen [From Tylenol] Allergy Severe facial Verified 02/21/24 18:46 swelling, trouble breathing opiates AdvReac Mild Depression Uncoded 02/21/24 18:46 Review of Systems Review of Systems ROS Unobtainable: All systems reviewed & are unremarkable except as noted in HPI and below Patient History Medical History Chest tightness Social History household members: children Smoking Status: Former smoker alcohol intake: never Smoking Status: Former smoker alcohol intake frequency: a few times a month Substance Use Type: does not use Exam Narrative Exam Narrative: GENERAL: Alert and oriented x three, well-appearing male in mild distress. HEENT: Head normocephalic, atraumatic, EOMI, pupils reactive, no conjunctival pallor, face symmetric, moist mucous membranes NECK: Supple, full range of motion CARDIOVASCULAR: Regular rate and rhythm without murmurs, rubs or gallops. No JVD. RESPIRATORY: Breath sounds equal bilaterally, no wheezes rales or rhonchi. No tachypnea. ABDOMEN: Soft, nontender. Normoactive bowel sounds all 4 quadrants. No guarding or rebound, rigidity, no mass. Patient presents with a stool sample that is formed but is solid and black. : No CVA tenderness EXTREMITIES: Normal range of motion, no clubbing or edema. Neurovascularly intact NEUROLOGICAL: Cranial nerves II through XII grossly intact. Moving all extremities SKIN: Warm, dry, no petechiae, no rashes or lesions. Initial Vital Signs Initial Vital Signs: Vital Signs Temperature 97.3 F L 02/27/24 09:05 Pulse Rate 94 H 02/27/24 09:05 Respiratory Rate 18 02/27/24 09:05 Blood Pressure 121/83 02/27/24 09:05 Pulse Oximetry 99 02/27/24 09:05 Oxygen Delivery Method Room Air 02/27/24 09:05 Course Orders Ordered: Discontinued Medications Ondansetron HCl (Ondansetron 4 Mg/2 Ml Inj) 4 mg IV NOW PRN PRN Reason: Nausea And Vomiting Ondansetron HCl (Ondansetron 4 Mg Odt) 4 mg SL NOW PRN PRN Reason: Nausea And Vomiting Pantoprazole Sodium (Pantoprazole 40 Mg Vial) 80 mg IV NOW ONE Stop: 02/27/24 09:14 Last Admin: 02/27/24 09:44 Dose: 80 mg Documented By: HERLINDA Sodium Chloride (Sodium Chloride 0.9% Flush) 10 ml IV BID ANNY Sodium Chloride (Sodium Chloride 0.9% Flush) 10 ml IV PRN PRN PRN Reason: Flush Last Admin: 02/27/24 09:47 Dose: 10 ml Documented By: Admin: 02/27/24 09:46 Dose: 10 ml Documented By: Admin: 02/27/24 09:43 Dose: 10 ml Documented By: HERLINDA Vital Signs Vital signs: Vital Signs - 8 hr 02/27/24 09:05 Temperature 97.3 F L Pulse Rate 94 H Respiratory Rate 18 Blood Pressure 121/83 Pulse Oximetry 99 Oxygen Delivery Method Room Air MDM - GI Bleed Lab Data 02/27/24 09:20 02/27/24 09:20 Labs: Lab Results 02/27/24 Range/Units 09:20 WBC 7.9 (4.5-11.0) X10^3/uL RBC 4.64 (4.5-5.9) X10^6/uL Hgb 15.0 (13.5-17.5) g/dL Hct 42.3 (41-53) % MCV 91.1 (80-100) fL MCH 32.3 (26-34) PG MCHC 35.4 (30-36) % RDW 13.5 (11.6-14.8) % Plt Count 190 (150-400) X10^3/uL Neut % (Auto) 69.5 (50-75) % Lymph % (Auto) 19.0 L (25-40) % [place] % (Auto) 8.0 (3-14) % Eos % (Auto) 2.3 (2-4) % Baso % (Auto) 1.2 (0-2) % Neut # (Auto) 5500 (0204-5792) /uL Lymph # (Auto) 1500 (6271-7634) /uL Def[place] # (Auto) 600 (0-900) /uL Eos # (Auto) 200 (0-450) /uL Baso # (Auto) 100 (0-100) /uL PT 11.6 (9.4-12.5) SECONDS INR 1.0 (0.9-1.3) APTT 35 (25.1-36.5) SECONDS Sodium 137 (137-145) mmol/L Potassium 3.8 (3.4-5.1) mmol/L Chloride 104 (98-107) mmol/L Carbon Dioxide 27 (22-32) mmol/L BUN 21 H (9-20) mg/dL Creatinine 0.96 (0.66-1.25) mg/dL Estimated GFR > 60 (>60) mL/min BUN/Creatinine Ratio 21.9 (6-22) Glucose 120 H (80-110) mg/dL Calcium 8.9 (8.4-10.2) mg/dL Total Bilirubin 1.1 (0.2-1.3) mg/dL AST 21 (17-59) IU/L ALT 17 (<50) IU/L Alkaline Phosphatase 70 (38-126) U/L Total Protein 6.7 (6.3-8.2) g/dL Albumin 4.2 (3.5-5.0) g/dL Globulin 2.5 (1.7-4.1) g/dL Albumin/Globulin Ratio 1.7 (1.0-2.8) Blood Type O Positive Antibody Screen Negative MDM Narrative Medical decision making narrative: Patient's labs show white count of 7.9 hemoglobin of 10, platelets of 190. Sodium of 137 potassium of 3 a chloride of 104 CO2 of 27 BUN 21 creatinine 0.96 glucose of 120 LFTs are negative. Patient has been hemodynamically stable in the department does not appear to require admission discussed with patient we will stop all NSAIDs can continue with methocarbamol if he finds helpful. Plan to start Pepcid 40 mg daily and referred to follow up for EGD and colonoscopy with return precautions. Patient had a CT of the thoracic spine on 02/21/2024 which was negative. Discharge Plan Departure Patient Disposition: Home Clinical Impression: GI bleed Activity Restrictions/Additional Instructions: Please follow-up for recheck and to have an EGD and possibly colonoscopy. Call to set up an appointment. Contact information is below. You likely developed an ulcer or some erosions in your stomach from NSAIDs such as meloxicam and ibuprofen. Avoid these medications for the time being. You can continue the methocarbamol you were prescribed. Take Pepcid 40 mg daily for the next month. You may need to continue this medication for a longer period of time. Prescription sent to [facility] in [place]. Please return for new or worsening symptoms increasing chest pain, shortness of breath or lightheadedness, increasing frequency of black or bloody stools, persistent vomiting or other new or concerning changes. Prescriptions: New famotidine [Pepcid] 40 mg tablet 40 mg PO DAILY Qty: 30 0RF No Action albuterol sulfate 90 mcg/actuation HFA aerosol inhaler 2 puff inhalation Q4-6H PRN (Reason: bronchospasm) Qty: 8.5 0RF meloxicam 7.5 mg tablet 7.5 mg PO DAILY Qty: 60 0RF methocarbamol 500 mg tablet 500 mg PO QID Qty: 30 0RF Referrals: Minesh Wong MD [Physician] - Miscellaneous,MD Katie [Primary Care Provider] - Stand Alone Forms: Patient Portal/API
[2024-02-27 09:35] LABS: Prothrombin Time 11.6 SECONDS (9.4-12.5)
[2024-02-27 09:37] LABS: PTT Partial Thromboplastin Tim 35 SECONDS (25.1-36.5)
[2024-02-27 09:39] LABS: Alanine Aminotransferase 17 IU/L (<50); Albumin 4.2 g/dL (3.5-5.0); Albumin Globulin Ratio 1.7 (1.0-2.8); Alkaline Phosphatase 70 U/L (38-126); Aspartate Aminotransferase 21 IU/L (17-59); BUN Creatinine Ratio 21.9 (6-22); Bilirubin Total 1.1 mg/dL (0.2-1.3); Blood Urea Nitrogen 21 mg/dL (9-20); Calcium 8.9 mg/dL (8.4-10.2); Carbon Dioxide 27 mmol/L (22-32); Chloride 104 mmol/L (98-107); Estimated Glomerular Filt Rate > 60 mL/min (>60); Globulin 2.5 g/dL (1.7-4.1); Glucose 120 mg/dL (80-110); HEMOLYSIS < 15 (0-50); Potassium 3.8 mmol/L (3.4-5.1); Sodium 137 mmol/L (137-145); Total Protein 6.7 g/dL (6.3-8.2)
[2024-02-27] MEDS: SODIUM CHLORIDE 0.9% FLUSH 10 ML IV ×3 (09:43→09:47)
[2024-02-27] MEDS: PANTOPRAZOLE 40 MG VIAL 80 MG IV (09:44)
[2024-02-27 10:32] VITALS: BP 129/85; PULSE 76; RESP 18; O2SAT 99
== END 2024-02-27 10:38 | disposition home or self-care (01) ==
PROVIDERS: Emergency Provider Emergency Medicine
DX: K92.2 Gastrointestinal hemorrhage, unspecified (principal)
CPT/HCPCS: 36415; 80053; 85025; 85610; 85730; 86850; 86900; 86901; 96374; 99284; C9113

== ENCOUNTER → 2024-08-26 08:38 | Outpatient (CLI) | payer OTHER, SELFPAY ==
--- NOTE | 2024-08-26 08:40 | DI.MRI.S_ITS ---
PROCEDURE: MR LUMBAR SPINE WO CON INDICATIONS: Acute on chronic thoracic back pain w/low back pain TECHNIQUE: Noncontrast sagittal T1 spin echo and T2 fast echo, sagittal STIR, and T2 fast spin echo through the lumbar spine. In cases with scoliosis, additional coronal T2 fast spin echo may be performed. COMPARISON: None. FINDINGS: Image quality: Excellent Alignment of the lumbar spine is grossly anatomic. Multilevel disc desiccation. Mild disc bulge at L3-4. Vertebral body heights of the lumbar spine are well maintained. Marrow signal is normal for age. Conus terminates at the level of L1, and is unremarkable. Right neural foraminal stenosis: Mild at L3-4. Left neural foraminal stenosis: Mild at L3-4, L4-5. Axial images: T12-L1: No central canal stenosis. L1-2: Unremarkable L2-3: Mild bilateral facet arthropathy. No central canal stenosis. L3-4: Mild disc bulge. Moderate bilateral facet arthropathy. Epidural lipomatosis. Mild central canal stenosis. L4-5: Mild bilateral facet arthropathy. No central canal stenosis. L5-S1: Mild bilateral facet arthropathy. No central canal stenosis. Visualized sacrum is intact. No abdominal aortic aneurysm. IMPRESSION: 1. Multilevel degenerative changes of the lumbar spine, most pronounced at L3-4, where there is mild central canal stenosis and mild bilateral neural foraminal stenosis. Dictated by: Akila Durand M.D. on 08/28/2024 at 11:00 Approved by: Akila Durand M.D. on 08/28/2024 at 11:08
--- NOTE | 2024-08-26 08:40 | DI.MRI.S_ITS ---
PROCEDURE: MR THORACIC SPINE WO CON INDICATIONS: Acute on chronic thoracic back pain TECHNIQUE: Noncontrast sagittal T1 spine echo and T2 fast spin echo, sagittal STIR, and T2 fast spin echo through the thoracic spine. COMPARISON: None. FINDINGS: Image quality: Excellent Mild dextrocurvature of the upper thoracic spine. Marrow signal of the thoracic spine is anatomic. Multilevel disc desiccation. No significant disc bulge. Vertebral body height of the thoracic spine is well maintained. Cord signal: Mild prominence of the central canal in the cord at the level of T9-T10, nonspecific. Central canal stenosis: None. Right neural foraminal stenosis: None. Left neural from stenosis: None. Disc bulge at C6-7, resulting in mild to moderate central canal stenosis, incompletely evaluated on sagittal view only. Other soft tissue findings: visualized thoracic aorta is unremarkable. IMPRESSION: 1. Mild prominence of the central canal in the thoracic cord at the level of T9-10, nonspecific. 2. No stenosis in the thoracic spine. 3. Mild to moderate central canal stenosis at C6-7, incompletely evaluated. Dictated by: Akila Durand M.D. on 08/28/2024 at 10:49 Approved by: kAila Durand M.D. on 08/28/2024 at 11:00
== END ==
LOC: MRI 08:39
PROVIDERS: Family Provider Family Medicine; PCP Family Medicine; Referring Provider Family Medicine; Visit Provider Family Medicine
DX: S29.012A Strain of muscle and tendon of back wall of thorax, initial encounter (principal); M48.04 Spinal stenosis, thoracic region; M47.816 Spondylosis without myelopathy or radiculopathy, lumbar region; M47.817 Spondylosis without myelopathy or radiculopathy, lumbosacral region; M48.061 Spinal stenosis, lumbar region without neurogenic claudication; M54.6 Pain in thoracic spine; M54.50 Low back pain, unspecified; G89.29 Other chronic pain; X58.XXXA Exposure to other specified factors, initial encounter
CPT/HCPCS: 72146; 72148

== ENCOUNTER 2024-09-14 14:30 | Outpatient (RCR) | payer OTHER, SELFPAY ==
--- NOTE | 2024-09-06 15:00 | PT.OIE ---
Current Diagnoses Stiffness of other specified joint, not elsewhere classified (09/06/24) Other lack of coordination (09/06/24) Weakness (09/06/24) Strain of muscle and tendon of back wall of thorax, subsequent encounter (09/06/24) Past Medical History Chest tightness Hx of intravenous drug use in remission Visit Care Team Role Provider Type Elsa Damon PA-C Referring Provider Advanced Editor Department Specialty: Emergency Medicine Address: [address] [place] [address], [address] Email: [email or web address] Earl Coburn MD Attending Provider Physician Family Provider Primary Care Provider Specialty: Family Practice Obstetrics Address: [address] [place], [address] Email: [email or web address] Physical Therapy Initial Evaluation PT-OP-A Visit Information Start: 09/05/24 16:03 Freq: Status: Active Protocol: Document 09/06/24 07:24 NM (Rec: 09/06/24 08:19 NM [id number]) Out-Patient Physical Therapy Visit Information Visit Information Visit Type Initial Evaluation Visit Start Time 07:30 Visit Stop Time 08:15 Visit Number 1 Evaluation Information Evaluation Date 09/06/24 PT-OP-B Current Condition Start: 09/05/24 16:03 Freq: Status: Active Protocol: Document 09/06/24 07:24 NM (Rec: 09/06/24 08:19 NM [id number]) Current Condition History of Current Condition Onset Date 4 years ago Current Complaints pain History of Current Condition Pt presents with back pain, states worsening. Reports that pain is radiating through back, chest, stomach. He just got back from vacation, which helped reduce his pain symptoms since he was lying down and resting all day; however, back at work, states that worsening again. Has been taking 12-16 muscle relaxers a day. Got off of ibuprofen because taking too much recently. He will be going to spine doctor in December 2023. Reports that pain started 4 years ago in his spine ( gestures to midback). 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 One year ago, reports pain worsened and thought he pulled a muscle in his back while driving home; better 4-5 days, states has come and gone since. Pt reports worse with sitting at desk for too long ( 1 hour), stand, lifting (lunch pail). Pt reports that he is getting acid reflux, threw up last night, recently; has to sleep on either side. Eats about 5-5:30, sleep at 9 ( reports no change in symptoms if food type varies). Pt reports that he had a month when he had no energy, had a lot of testing without results ; had a vaccine which he thinks caused it in 2020. Reports has tingling in all 5 fingers, R>L; just noticed it . Prior Treatments and Tests Lumbar spine MRI 08/2024- Impression: multilevel degenerative changes of the lumbar spine, most pronounced at L3-4, where there is central canal stenosis and mild bilateral neural foraminal stenosis. Thoracic spine MRI 08/2024- Impression: 1. Mild prominence of the central canal in the thoracic cord at the level of T9-10, non- specific., 2. No stenosis in the thoracic spine, 3. Mild to moderate central canal stenosis at C6-7, incompletely evaluated PT-OP-C Subjective Start: 09/05/24 16:03 Freq: Status: Active Protocol: Document 09/06/24 07:24 NM (Rec: 09/06/24 08:19 NM [id number]) OP-PT Subjective Patient Comments Patient Comments Pt consents to participation in evaluation Patient Questionnaires Neck Disability Index NDI Score did not complete; unable to score Oswestry Low Back Index Oswestry Score 36/100 OP-PT Pain Assessment Location back pain Pain Location Details shldr blades, T10-12 Intensity 10 Scale Used Numeric (0 - 10) Description Sharp,Spasm Description- Other current: 2 Frequency Constant Radiating Location to chest, stomach Pain Aggravating Factors Standing,Sitting,Lifting Other Pain Aggravating Factors wearing backpack, sleeping; sitting/driving; straining Pain Alleviating Factors Heat Other Pain Alleviating Factors heat/vibration pad @ night, movement Comments Pain Comments 2 muscle relaxers/3 ibuprofen multiple times per day PT-OP-F Manual Assessment Start: 09/05/24 16:03 Freq: Status: Active Protocol: Document 09/06/24 07:24 NM (Rec: 09/06/24 15:51 NM [id number]) Manual Assessments Soft Tissue Assessment Soft Tissue Mobility Assessment Increased restrictions at thoracic paraspinals, periscapulars B Joint Mobility Assessment Joint Mobility Assessment Hypomobility of thoracic spine with PA springing especially at thoracolumbar junction and mid-thoracic Other Manual Assessments Other Manual Assessments Back pain reproduced when asked to inhale and hold breath after several reps. Ribs expand and do not feel stuck with posterior palpation PT-OP-G Mobility & Gait Start: 09/05/24 16:03 Freq: Status: Active Protocol: Document 09/06/24 07:24 NM (Rec: 09/06/24 15:51 NM [id number]) OP Gait Assessment Gait Gait Assistance Required: Standby Assistance Distance (Feet) 150 Factors Limiting Gait Function Factors Limiting Gait Function Decreased Activity Tolerance, Decreased Strength,Limited Range of Motion,Pain PT-OP-J Posture/Palpation/Skin Start: 09/05/24 16:03 Freq: Status: Active Protocol: Document 09/06/24 07:24 NM (Rec: 09/06/24 15:51 NM [id number]) Posture Evaluation Position Standing Head/C-Spine Posture Forward Head T-Spine Posture Increased Kyphosis L-Spine Posture Increased Lordosis Shoulder Posture (L) Rounded,(R) Rounded Hip Posture (L) Externally Rotated,(R) Externally Rotated Knee Posture (L) Genu Varus,(R) Genu Varus Palpation Assessment Location Thoracic spine Palpation Details Tenderness along spinous processes near T5-8 and T10-12 , along with transverse processes at T5-8. No notable differences between rib position or alignment bilaterally Improvements in pain levels with PA springing Minimal periscapular and paraspinal tightness Comments that prone feels better PT-OP-K Range of Motion Start: 09/05/24 16:03 Freq: Status: Active Protocol: Document 09/06/24 07:24 NM (Rec: 09/06/24 08:19 NM [id number]) Cervical Spine Range of Motion Cervical Spine Active Degrees Flexion 60 Extension 35 Rotation Left 70 Rotation Right 68 Lateral Flexion Left 35 Lateral Flexion Right 40 Comments Thoracic spine: 100% flex, 75% ext, 7 cm B rotation, 50% lateral flexion Lumbar Spine Range of Motion Lumbar Spine Active Percentage Flexion 90 Extension 75 Rotation Left 100 Rotation Right 100 Lateral Flexion Left 100 Lateral Flexion Right 75 Shoulder Goniometric Range of Motion Shoulder Right Comments WFL Left Comments WFL PT-OP-L Special Tests Start: 09/05/24 16:03 Freq: Status: Active Protocol: Document 09/06/24 07:24 NM (Rec: 09/06/24 08:19 NM [id number]) Special Tests Cervical Spine Special Tests Spurling's Test Test Results - Lumbar Spine Special Tests Littlejohn/Quadrant Test Results - Straight Leg Raise Test Results - Neural Special Tests- Upper Body Upper Limb Tension Test Test Results + median and ulnar nn. L Comments reports no increase in neural symptoms on L side Other Special Tests Special Tests Hop impact test: + back pain with impact on ground following small hop; reports same pain reproduction PT-OP-M Strength Start: 09/05/24 16:03 Freq: Status: Active Protocol: Document 09/06/24 07:24 NM (Rec: 09/06/24 08:19 NM [id number]) Cervical Spine Strength Cervical Spine Manual Muscle Testing Flexion (C1-2) 4 Good Extension 4 Good Rotation Left 4 Good Rotation Right 4 Good Lateral Flexion Left (C3) 4 Good Lateral Flexion Right (C3) 4 Good Trunk Strength Trunk Manual Muscle Testing Flexion 4 Good Extension 4 Good Rotation Left 4 Good Rotation Right 4 Good Lateral Flexion Left 4 Good Lateral Flexion Right 4 Good Comments TS pain reproduced with resisted ext, flex Shoulder Strength Shoulder Manual Muscle Testing Right Flexion 4 Good Abduction (C5) 4 Good External Rotation 4 Good Internal Rotation 4 Good Left Flexion 4- Good- Abduction (C5) 4- Good- External Rotation 4- Good- Internal Rotation 4- Good- Elbow/Forearm Strength Elbow and Forearm Manual Muscle Testing Right Flexion (C6) 4 Good Extension (C7) 4 Good Left Flexion (C6) 4- Good- Extension (C7) 4- Good- PT-OP-Q Treatments Start: 09/05/24 16:03 Freq: Status: Active Protocol: Document 09/06/24 07:24 NM (Rec: 09/06/24 08:19 NM [id number]) Therapeutic Exercises Supine Exercises pectoralis stretch Supine Exercise Name 1. arms behind head, 2. T @ 90 deg (HEP) Side bilateral Reps/Minutes 60 ea Comments better response to T Prone Exercises prone on elbows Prone Exercise Name 1. LUIS, 2. scapular protract/ retraction in LUIS Reps/Minutes 1. 1 min, 2. 5 Comments symptom increase with scap movement PT-OP-T Assessment and Plan Start: 09/05/24 16:03 Freq: Status: Active Protocol: Document 09/06/24 07:24 NM (Rec: 09/06/24 15:51 NM [id number]) Physical Therapy Assessment Rehab Potential Rehabilitation Potential Fair Evaluation Complexity Number of Personal Factors/Comorbidities 3 or More Number of Body Systems Impaired 3 Clinical Presentation at Evaluation Stable Impairments Impairments Activity Tolerance,Balance, Functional Activities, Functional Mobility,Gait,Pain, Posture,ROM,Sensation,Soft Tissue Mobility,Strength, Transfers Other Concerns Age Related Concerns Pt is taking 12-16 muscle relaxers every day, in addition to ibuprofen. Hx of acid reflux, liver disease, drug abuse, smoking, GI bleeds . Pt has had extensive work up including MRIs, CT, and multiple assessments for pain over past year Barriers to Rehabilitation Due to pt work schedule, can only attend PT 1x/wk but would benefit from 2x/wk. Goals Three Impairment pain with lifting Short Term Goal (STG) Pt will be educated on lifting mechanics and body ergonomics to reduce strain on back with repetitive lifting for work activities STG Duration 6 weeks Collection Systems Administrator Goal (LTG) Pt will report that he has <3/ 10 back pain with lifting at least 1 gallon for work LTG Duration 12 weeks Two Impairment not performing HEP Intermediate Goal (LTG) Pt will report compliance with HEP at least 3x/wk in order to maximize progression with PT and transition smoothly into maintenance program upon discharge LTG Duration 12 weeks One Impairment Oswestry 36/100 - pain with ADLs/IADLs, activities Intermediate Goal (LTG) Pt will report <25% impairment on Oswestry in order to demonstrate improved ADL tolerance and symptom management LTG Duration 12 weeks Assessment Summary Assessment Pt is a 59 y.o. male presenting with chronic thoracic spine pain beginning 4 years ago following jumping off of a deck with a backpack on and worsening over the past 2 years. Pt recently had vacation which has decreased symptoms considerably. However , pain is not well managed as pt reports that he is currently taking 12-16 pills each day for medication. Pt's pain is reproduced with impact , inhalation and breath holding, resisted thoracic flex/ext, thoracic AROM, and weightbearing. Pt has impairments in sitting, standing, work-related tasks, sleeping, lifting, wearing backpack, and performing ADLs. Pt has BUE tingling into hands, reproduced on L side with ULTT; he also has mild weakness on LUE compared to RUE. No changes to neural symptoms with vertebral compression or straight leg raise. Denies any sensation changes except tingling into B fingers. Pt's symptoms are consistent with disc-related dysfunction, likely of cervicothoracic spine, and rib dysfunction which is consistent with imaging; however, will continue to assess. He has recently had acid-reflux that his worsening at night. PT educated pt on exam findings and plan of care . Due to work limitations, pt will be attended 1x/wk despite recommendation of 2x/wk for symptom management initially. Pt would benefit from skilled PT for progressive mobility and strengthening in order to improve symptom management and ability to perform ADLs/IADLs in addition to work-related tasks. Physical Therapy Plan Frequency and Duration Frequency of Treatment 1-2x/wk Duration of treatment (weeks) 12 Plan of Care Start Date 09/06/24 Plan of Care End Date 12/01/24 Therapeutic Interventions Therapeutic Interventions Gait Training,Home Exercise Program,Joint Mobilizations, Manual Therapy,Neuromuscular Re-education,Orthotic/ Prosthetic Management,Patient/ Caregiver Education,Self-Care/ Home Management,Sensory Integration,Soft Tissue Mobilization,Taping, Therapeutic Activities, Therapeutic Exercises Modalities Cold Pack/Ice Massage,Electric Stimulation,Hot Packs, Ultrasound Next Visit Focus/Plan Next Note Type Treatment Note Next Visit Plan trial diaphragmatic breathing. thoracic mobility: open book variations, thoracic extension and flexion test hip strength
--- NOTE | 2024-09-06 15:30 | PT.OPPOC ---
Physical, Occupational & Speech Therapy At [facility] Current Diagnoses Stiffness of other specified joint, not elsewhere classified (09/06/24) Other lack of coordination (09/06/24) Weakness (09/06/24) Strain of muscle and tendon of back wall of thorax, subsequent encounter (09/06/24) Visit Care Team Role Provider Type Elsa Damon PA-C Referring Provider Advanced [employer] Worker Specialty: Emergency Medicine Address: [address] [place] [address], [id number] Email: [email or web address] Earl Coburn MD Attending Provider Physician Family Provider Primary Care Provider Specialty: Family Practice Obstetrics Address: [address] [place], [address] Email: [email or web address] Plan Of Care PT-OP-B Current Condition Start: 09/05/24 16:03 Freq: Status: Active Protocol: Document 09/06/24 07:24 NM (Rec: 09/06/24 08:19 NM [id number]) Current Condition History of Current Condition Onset Date 4 years ago Current Complaints pain History of Current Condition Pt presents with back pain, states worsening. Reports that pain is radiating through back, chest, stomach. He just got back from vacation, which helped reduce his pain symptoms since he was lying down and resting all day; however, back at work, states that worsening again. Has been taking 12-16 muscle relaxers a day. Got off of ibuprofen because taking too much recently. He will be going to spine doctor in December 2023. Reports that pain started 4 years ago in his spine ( gestures to midback). 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 One year ago, reports pain worsened and thought he pulled a muscle in his back while driving home; better 4-5 days, states has come and gone since. Pt reports worse with sitting at desk for too long ( 1 hour), stand, lifting (lunch pail). Pt reports that he is getting acid reflux, threw up last night, recently; has to sleep on either side. Eats about 5-5:30, sleep at 9 ( reports no change in symptoms if food type varies). Pt reports that he had a month when he had no energy, had a lot of testing without results ; had a vaccine which he thinks caused it in 2020. Reports has tingling in all 5 fingers, R>L; just noticed it . Prior Treatments and Tests Lumbar spine MRI 08/2024- Impression: multilevel degenerative changes of the lumbar spine, most pronounced at L3-4, where there is central canal stenosis and mild bilateral neural foraminal stenosis. Thoracic spine MRI 08/2024- Impression: 1. Mild prominence of the central canal in the thoracic cord at the level of T9-10, non- specific., 2. No stenosis in the thoracic spine, 3. Mild to moderate central canal stenosis at C6-7, incompletely evaluated PT-OP-T Assessment and Plan Start: 09/05/24 16:03 Freq: Status: Active Protocol: Document 09/06/24 07:24 NM (Rec: 09/06/24 15:51 NM [id number]) Physical Therapy Assessment Rehab Potential Rehabilitation Potential Fair Evaluation Complexity Number of Personal Factors/Comorbidities 3 or More Number of Body Systems Impaired 3 Clinical Presentation at Evaluation Stable Impairments Impairments Activity Tolerance,Balance, Functional Activities, Functional Mobility,Gait,Pain, Posture,ROM,Sensation,Soft Tissue Mobility,Strength, Transfers Other Concerns Age Related Concerns Pt is taking 12-16 muscle relaxers every day, in addition to ibuprofen. Hx of acid reflux, liver disease, drug abuse, smoking, GI bleeds . Pt has had extensive work up including MRIs, CT, and multiple assessments for pain over past year Barriers to Rehabilitation Due to pt work schedule, can only attend PT 1x/wk but would benefit from 2x/wk. Goals Three Impairment pain with lifting Short Term Goal (STG) Pt will be educated on lifting mechanics and body ergonomics to reduce strain on back with repetitive lifting for work activities STG Duration 6 weeks Engineering Drawings Checker Goal (LTG) Pt will report that he has <3/ 10 back pain with lifting at least 1 gallon for work LTG Duration 12 weeks Two Impairment not performing HEP Half-Way Goal (LTG) Pt will report compliance with HEP at least 3x/wk in order to maximize progression with PT and transition smoothly into maintenance program upon discharge LTG Duration 12 weeks One Impairment Oswestry 36/100 - pain with ADLs/IADLs, activities Engineering Drawings Checker Goal (LTG) Pt will report <25% impairment on Oswestry in order to demonstrate improved ADL tolerance and symptom management LTG Duration 12 weeks Assessment Summary Assessment Pt is a 59 y.o. male presenting with chronic thoracic spine pain beginning 4 years ago following jumping off of a deck with a backpack on and worsening over the past 2 years. Pt recently had vacation which has decreased symptoms considerably. However , pain is not well managed as pt reports that he is currently taking 12-16 pills each day for medication. Pt's pain is reproduced with impact , inhalation and breath holding, resisted thoracic flex/ext, thoracic AROM, and weightbearing. Pt has impairments in sitting, standing, work-related tasks, sleeping, lifting, wearing backpack, and performing ADLs. Pt has BUE tingling into hands, reproduced on L side with ULTT; he also has mild weakness on LUE compared to RUE. No changes to neural symptoms with vertebral compression or straight leg raise. Denies any sensation changes except tingling into B fingers. Pt's symptoms are consistent with disc-related dysfunction, likely of cervicothoracic spine, and rib dysfunction which is consistent with imaging; however, will continue to assess. He has recently had acid-reflux that his worsening at night. PT educated pt on exam findings and plan of care . Due to work limitations, pt will be attended 1x/wk despite recommendation of 2x/wk for symptom management initially. Pt would benefit from skilled PT for progressive mobility and strengthening in order to improve symptom management and ability to perform ADLs/IADLs in addition to work-related tasks. Physical Therapy Plan Frequency and Duration Frequency of Treatment 1-2x/wk Duration of treatment (weeks) 12 Plan of Care Start Date 09/06/24 Plan of Care End Date 12/01/24 Therapeutic Interventions Therapeutic Interventions Gait Training,Home Exercise Program,Joint Mobilizations, Manual Therapy,Neuromuscular Re-education,Orthotic/ Prosthetic Management,Patient/ Caregiver Education,Self-Care/ Home Management,Sensory Integration,Soft Tissue Mobilization,Taping, Therapeutic Activities, Therapeutic Exercises Modalities Cold Pack/Ice Massage,Electric Stimulation,Hot Packs, Ultrasound Next Visit Focus/Plan Next Note Type Treatment Note Next Visit Plan trial diaphragmatic breathing. thoracic mobility: open book variations, thoracic extension and flexion test hip strength Plan of Care Dates Plan of Care Start Date 09/06/24 Plan of Care End Date 12/01/24 Electronically Signed by: Sanjuana Alicia, PT 09/07/24 0918 If you are in agreement with this Plan of Care, please return a signed and dated copy. I have reviewed this Plan of Care and certify that the skilled therapy services above are required to meet the patient?s needs. Physician Signature Date Printed Name and Credentials Clinical Instructor Signature Printed Name and Credentials
--- NOTE | 2024-09-14 15:35 | PT.OTN ---
Current Diagnoses Stiffness of other specified joint, not elsewhere classified (09/14/24) Other lack of coordination (09/14/24) Weakness (09/14/24) Strain of muscle and tendon of back wall of thorax, subsequent encounter (09/14/24) Physical Therapy Treatment Note PT-OP-A Visit Information Start: 09/05/24 16:03 Freq: Status: Active Protocol: Document 09/14/24 14:32 NM (Rec: 09/14/24 15:26 NM [id number]) Out-Patient Physical Therapy Visit Information Visit Information Visit Type Treatment Note Visit Start Time 14:40 Visit Stop Time 15:18 Visit Number 2 Evaluation Information Evaluation Date 09/06/24 PT-OP-B Current Condition Start: 09/05/24 16:03 Freq: Status: Active Protocol: Document 09/06/24 07:24 NM (Rec: 09/06/24 08:19 NM [id number]) Current Condition History of Current Condition Onset Date 4 years ago Current Complaints pain History of Current Condition Pt presents with back pain, states worsening. Reports that pain is radiating through back, chest, stomach. He just got back from vacation, which helped reduce his pain symptoms since he was lying down and resting all day; however, back at work, states that worsening again. Has been taking 12-16 muscle relaxers a day. Got off of ibuprofen because taking too much recently. He will be going to spine doctor in December 2023. Reports that pain started 4 years ago in his spine ( gestures to midback). 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 One year ago, reports pain worsened and thought he pulled a muscle in his back while driving home; better 4-5 days, states has come and gone since. Pt reports worse with sitting at desk for too long ( 1 hour), stand, lifting (lunch pail). Pt reports that he is getting acid reflux, threw up last night, recently; has to sleep on either side. Eats about 5-5:30, sleep at 9 ( reports no change in symptoms if food type varies). Pt reports that he had a month when he had no energy, had a lot of testing without results ; had a vaccine which he thinks caused it in 2020. Reports has tingling in all 5 fingers, R>L; just noticed it . Prior Treatments and Tests Lumbar spine MRI 08/2024- Impression: multilevel degenerative changes of the lumbar spine, most pronounced at L3-4, where there is central canal stenosis and mild bilateral neural foraminal stenosis. Thoracic spine MRI 08/2024- Impression: 1. Mild prominence of the central canal in the thoracic cord at the level of T9-10, non- specific., 2. No stenosis in the thoracic spine, 3. Mild to moderate central canal stenosis at C6-7, incompletely evaluated PT-OP-C Subjective Start: 09/05/24 16:03 Freq: Status: Active Protocol: Document 09/14/24 14:32 NM (Rec: 09/14/24 15:26 NM [id number]) OP-PT Subjective Patient Comments Patient Comments Pt reports that his back going well. Pt has not had medication today. He reports that the worse pain is 3-4/10. He states right now 1/10 pain . Reports right at TL junction and between shoulder blades PT-OP-F Manual Assessment Start: 09/05/24 16:03 Freq: Status: Active Protocol: Document 09/06/24 07:24 NM (Rec: 09/06/24 15:51 NM [id number]) Manual Assessments Soft Tissue Assessment Soft Tissue Mobility Assessment Increased restrictions at thoracic paraspinals, periscapulars B Joint Mobility Assessment Joint Mobility Assessment Hypomobility of thoracic spine with PA springing especially at thoracolumbar junction and mid-thoracic Other Manual Assessments Other Manual Assessments Back pain reproduced when asked to inhale and hold breath after several reps. Ribs expand and do not feel stuck with posterior palpation PT-OP-G Mobility & Gait Start: 09/05/24 16:03 Freq: Status: Active Protocol: Document 09/06/24 07:24 NM (Rec: 09/06/24 15:51 NM [id number]) OP Gait Assessment Gait Gait Assistance Required: Standby Assistance Distance (Feet) 150 Factors Limiting Gait Function Factors Limiting Gait Function Decreased Activity Tolerance, Decreased Strength,Limited Range of Motion,Pain PT-OP-J Posture/Palpation/Skin Start: 09/05/24 16:03 Freq: Status: Active Protocol: Document 09/06/24 07:24 NM (Rec: 09/06/24 15:51 NM [id number]) Posture Evaluation Position Standing Head/C-Spine Posture Forward Head T-Spine Posture Increased Kyphosis L-Spine Posture Increased Lordosis Shoulder Posture (L) Rounded,(R) Rounded Hip Posture (L) Externally Rotated,(R) Externally Rotated Knee Posture (L) Genu Varus,(R) Genu Varus Palpation Assessment Location Thoracic spine Palpation Details Tenderness along spinous processes near T5-8 and T10-12 , along with transverse processes at T5-8. No notable differences between rib position or alignment bilaterally Improvements in pain levels with PA springing Minimal periscapular and paraspinal tightness Comments that prone feels better PT-OP-K Range of Motion Start: 09/05/24 16:03 Freq: Status: Active Protocol: Document 09/06/24 07:24 NM (Rec: 09/06/24 08:19 NM [id number]) Cervical Spine Range of Motion Cervical Spine Active Degrees Flexion 60 Extension 35 Rotation Left 70 Rotation Right 68 Lateral Flexion Left 35 Lateral Flexion Right 40 Comments Thoracic spine: 100% flex, 75% ext, 7 cm B rotation, 50% lateral flexion Lumbar Spine Range of Motion Lumbar Spine Active Percentage Flexion 90 Extension 75 Rotation Left 100 Rotation Right 100 Lateral Flexion Left 100 Lateral Flexion Right 75 Shoulder Goniometric Range of Motion Shoulder Right Comments WFL Left Comments WFL PT-OP-L Special Tests Start: 09/05/24 16:03 Freq: Status: Active Protocol: Document 09/06/24 07:24 NM (Rec: 09/06/24 08:19 NM [id number]) Special Tests Cervical Spine Special Tests Spurling's Test Test Results - Lumbar Spine Special Tests Littlejohn/Quadrant Test Results - Straight Leg Raise Test Results - Neural Special Tests- Upper Body Upper Limb Tension Test Test Results + median and ulnar nn. L Comments reports no increase in neural symptoms on L side Other Special Tests Special Tests Hop impact test: + back pain with impact on ground following small hop; reports same pain reproduction PT-OP-M Strength Start: 09/05/24 16:03 Freq: Status: Active Protocol: Document 09/06/24 07:24 NM (Rec: 09/06/24 08:19 NM [id number]) Cervical Spine Strength Cervical Spine Manual Muscle Testing Flexion (C1-2) 4 Good Extension 4 Good Rotation Left 4 Good Rotation Right 4 Good Lateral Flexion Left (C3) 4 Good Lateral Flexion Right (C3) 4 Good Trunk Strength Trunk Manual Muscle Testing Flexion 4 Good Extension 4 Good Rotation Left 4 Good Rotation Right 4 Good Lateral Flexion Left 4 Good Lateral Flexion Right 4 Good Comments TS pain reproduced with resisted ext, flex Shoulder Strength Shoulder Manual Muscle Testing Right Flexion 4 Good Abduction (C5) 4 Good External Rotation 4 Good Internal Rotation 4 Good Left Flexion 4- Good- Abduction (C5) 4- Good- External Rotation 4- Good- Internal Rotation 4- Good- Elbow/Forearm Strength Elbow and Forearm Manual Muscle Testing Right Flexion (C6) 4 Good Extension (C7) 4 Good Left Flexion (C6) 4- Good- Extension (C7) 4- Good- PT-OP-Q Treatments Start: 09/05/24 16:03 Freq: Status: Active Protocol: Document 09/14/24 14:32 NM (Rec: 09/14/24 15:26 NM [id number]) Therapeutic Exercises Supine Exercises lumbar traction Supine Exercise Name on ball (HEP) Side bilateral Reps/Minutes 1 min knees to chest Supine Exercise Name repeated motions Side bilateral Reps/Minutes 1. 10 w/ towel assist, 2. 5 w/ ball Comments slight inc in mid scap pain diaphragmatic breathing Supine Exercise Name hooklying (HEP) Equipment Used self tactile cues on belly and chest Reps/Minutes 2 minutes Comments edu on rationale and purpose TrA activation Supine Exercise Name 1. TRA, 2. marching (HEP) Side bilateral Reps/Minutes 1. 30 sec w/ cues from PT, 2. 8 ea Comments cues for control and softer impact Sidelying Exercises clams/reverse clams Sidelying Exercise Name 1. clams, 2. reverse clams Side bilateral Reps/Minutes 1. 15 ea, 2. 15 ea Comments cued no trunk rotation open book Sidelying Exercise Name 1. modified, 2. full open book (HEP) Side bilateral Reps/Minutes 1. 5, 2. 10 ea Comments cued keep pain free, end range is inc pain. Sitting Exercises trunk flexion Side bilateral Equipment Used orange sol[place] islander ball Reps/Minutes 10 Comments segmental; cued for execution; small inc pain but dec w/ form change Manual Therapy Treatment Consent Patient gave verbal consent for manual Yes treatment Soft Tissue Mobilization thoracolumbar spine Body Location paraspinals, rhomboids, QL Mobilization Type Rolling,Strumming,Sustained Pressure Intensity/Depth Superficial Body Position Sidelying Comments Positioned in L sidelying with pillow under head and between legs. Gentle soft tissue mobilization. Monitored for pain Manual Traction lumbar traction Details over orange sol[place] islander ball Body Position Hooklying Reps/Duration 2x60 Comments Reports symptom relief. Educated can perform at home with gentle distraction Self-Care/Home Management Treatment Education Other Education Education on spinal anatomy and stenosis in terms of pt symptom management PT-OP-T Assessment and Plan Start: 09/05/24 16:03 Freq: Status: Active Protocol: Document 09/14/24 14:32 NM (Rec: 09/14/24 15:26 NM [id number]) Physical Therapy Assessment Goals Three Impairment pain with lifting Short Term Goal (STG) Pt will be educated on lifting mechanics and body ergonomics to reduce strain on back with repetitive lifting for work activities STG Duration 6 weeks Fpc Goal (LTG) Pt will report that he has <3/ 10 back pain with lifting at least 1 gallon for work LTG Duration 12 weeks Two Impairment not performing HEP Business Applications Developer Goal (LTG) Pt will report compliance with HEP at least 3x/wk in order to maximize progression with PT and transition smoothly into maintenance program upon discharge LTG Duration 12 weeks One Impairment Oswestry 36/100 - pain with ADLs/IADLs, activities Fpc Goal (LTG) Pt will report <25% impairment on Oswestry in order to demonstrate improved ADL tolerance and symptom management LTG Duration 12 weeks Assessment Summary Assessment Pt tolerated session well. Reports 1/10 pain at end of session and 0/10 pain as leaving session once upright. Initiated gentle thoracic mobility and flexion-biased exercises to open facets. Pt responds well to gentle open books and hip rotation exercises, in addition to core bracing in supine. Pt does have difficulty with controlling supine march initially but improved with reps. Poor tolerance for knees to chest repeated motions and stretching. Better feedback for seated segmental trunk flexion. Pt requires maximal cues for carryover. Good tolerance for superficial soft tissue mobilization but best response with symptom improvement via supine lumbar traction. Educated on diaphragmatic breathing and ways to perform lumbar traction in home safely. Pt would benefit from skilled PT for progressive trunk flexibility and strengthening in addition to improve symptom management and activity tolerance. Physical Therapy Plan Frequency and Duration Frequency of Treatment 1-2x/wk Duration of treatment (weeks) 12 Plan of Care Start Date 09/06/24 Plan of Care End Date 12/01/24 Therapeutic Interventions Therapeutic Interventions Gait Training,Home Exercise Program,Joint Mobilizations, Manual Therapy,Neuromuscular Re-education,Orthotic/ Prosthetic Management,Patient/ Caregiver Education,Self-Care/ Home Management,Sensory Integration,Soft Tissue Mobilization,Taping, Therapeutic Activities, Therapeutic Exercises Modalities Cold Pack/Ice Massage,Electric Stimulation,Hot Packs, Ultrasound Next Visit Focus/Plan Next Note Type Treatment Note Next Visit Plan Thoracic mobility: open book variations. can trial quadruped TS mobility, lat stretch, counter stretch. thoracic flexion w/ cat-cow but neutral> flex bias. Cont with seated trunk flexion w/ ball and to floor, work on segmental mobility. cont with seated or supine core and hip strength. Treat ~lumbar stenosis. PT- test hip strength
--- NOTE | 2024-12-05 10:33 | PT.OPDS ---
Current Diagnoses Stiffness of other specified joint, not elsewhere classified (09/14/24) Other lack of coordination (09/14/24) Weakness (09/14/24) Strain of muscle and tendon of back wall of thorax, subsequent encounter (09/14/24) Visit Care Team Role Provider Type Elsa Damon PA-C Referring Provider Advanced Organizational Consultant Specialty: Emergency Medicine Address: [address] [place], [address] Email: [email or web address] Earl Coburn MD Attending Provider Physician Family Provider Primary Care Provider Specialty: Family Practice Obstetrics Address: [address] [place], [address] Email: [email or web address] Visit Number Visit Number 2 Discharge Summary PT-OP-B Current Condition Start: 09/05/24 16:03 Freq: Status: Active Protocol: Document 09/06/24 07:24 NM (Rec: 09/06/24 08:19 NM [id number]) Current Condition History of Current Condition Onset Date 4 years ago Current Complaints pain History of Current Condition Pt presents with back pain, states worsening. Reports that pain is radiating through back, chest, stomach. He just got back from vacation, which helped reduce his pain symptoms since he was lying down and resting all day; however, back at work, states that worsening again. Has been taking 12-16 muscle relaxers a day. Got off of ibuprofen because taking too much recently. He will be going to spine doctor in December 2023. Reports that pain started 4 years ago in his spine ( gestures to midback). 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 One year ago, reports pain worsened and thought he pulled a muscle in his back while driving home; better 4-5 days, states has come and gone since. Pt reports worse with sitting at desk for too long ( 1 hour), stand, lifting (lunch pail). Pt reports that he is getting acid reflux, threw up last night, recently; has to sleep on either side. Eats about 5-5:30, sleep at 9 ( reports no change in symptoms if food type varies). Pt reports that he had a month when he had no energy, had a lot of testing without results ; had a vaccine which he thinks caused it in 2020. Reports has tingling in all 5 fingers, R>L; just noticed it . Prior Treatments and Tests Lumbar spine MRI 08/2024- Impression: multilevel degenerative changes of the lumbar spine, most pronounced at L3-4, where there is central canal stenosis and mild bilateral neural foraminal stenosis. Thoracic spine MRI 08/2024- Impression: 1. Mild prominence of the central canal in the thoracic cord at the level of T9-10, non- specific., 2. No stenosis in the thoracic spine, 3. Mild to moderate central canal stenosis at C6-7, incompletely evaluated PT-OP-C Subjective Start: 09/05/24 16:03 Freq: Status: Active Protocol: Document 09/14/24 14:32 NM (Rec: 09/14/24 15:26 NM [id number]) OP-PT Subjective Patient Comments Patient Comments Pt reports that his back going well. Pt has not had medication today. He reports that the worse pain is 3-4/10. He states right now 1/10 pain . Reports right at TL junction and between shoulder blades PT-OP-F Manual Assessment Start: 09/05/24 16:03 Freq: Status: Active Protocol: Document 09/06/24 07:24 NM (Rec: 09/06/24 15:51 NM [id number]) Manual Assessments Soft Tissue Assessment Soft Tissue Mobility Assessment Increased restrictions at thoracic paraspinals, periscapulars B Joint Mobility Assessment Joint Mobility Assessment Hypomobility of thoracic spine with PA springing especially at thoracolumbar junction and mid-thoracic Other Manual Assessments Other Manual Assessments Back pain reproduced when asked to inhale and hold breath after several reps. Ribs expand and do not feel stuck with posterior palpation PT-OP-G Mobility & Gait Start: 09/05/24 16:03 Freq: Status: Active Protocol: Document 09/06/24 07:24 NM (Rec: 09/06/24 15:51 NM [id number]) OP Gait Assessment Gait Gait Assistance Required: Standby Assistance Distance (Feet) 150 Factors Limiting Gait Function Factors Limiting Gait Function Decreased Activity Tolerance, Decreased Strength,Limited Range of Motion,Pain PT-OP-J Posture/Palpation/Skin Start: 09/05/24 16:03 Freq: Status: Active Protocol: Document 09/06/24 07:24 NM (Rec: 09/06/24 15:51 NM [id number]) Posture Evaluation Position Standing Head/C-Spine Posture Forward Head T-Spine Posture Increased Kyphosis L-Spine Posture Increased Lordosis Shoulder Posture (L) Rounded,(R) Rounded Hip Posture (L) Externally Rotated,(R) Externally Rotated Knee Posture (L) Genu Varus,(R) Genu Varus Palpation Assessment Location Thoracic spine Palpation Details Tenderness along spinous processes near T5-8 and T10-12 , along with transverse processes at T5-8. No notable differences between rib position or alignment bilaterally Improvements in pain levels with PA springing Minimal periscapular and paraspinal tightness Comments that prone feels better PT-OP-K Range of Motion Start: 09/05/24 16:03 Freq: Status: Active Protocol: Document 09/06/24 07:24 NM (Rec: 09/06/24 08:19 NM [id number]) Cervical Spine Range of Motion Cervical Spine Active Degrees Flexion 60 Extension 35 Rotation Left 70 Rotation Right 68 Lateral Flexion Left 35 Lateral Flexion Right 40 Comments Thoracic spine: 100% flex, 75% ext, 7 cm B rotation, 50% lateral flexion Lumbar Spine Range of Motion Lumbar Spine Active Percentage Flexion 90 Extension 75 Rotation Left 100 Rotation Right 100 Lateral Flexion Left 100 Lateral Flexion Right 75 Shoulder Goniometric Range of Motion Shoulder Right Comments WFL Left Comments WFL PT-OP-L Special Tests Start: 09/05/24 16:03 Freq: Status: Active Protocol: Document 09/06/24 07:24 NM (Rec: 09/06/24 08:19 NM [id number]) Special Tests Cervical Spine Special Tests Spurling's Test Test Results - Lumbar Spine Special Tests Littlejohn/Quadrant Test Results - Straight Leg Raise Test Results - Neural Special Tests- Upper Body Upper Limb Tension Test Test Results + median and ulnar nn. L Comments reports no increase in neural symptoms on L side Other Special Tests Special Tests Hop impact test: + back pain with impact on ground following small hop; reports same pain reproduction PT-OP-M Strength Start: 09/05/24 16:03 Freq: Status: Active Protocol: Document 09/06/24 07:24 NM (Rec: 09/06/24 08:19 NM [id number]) Cervical Spine Strength Cervical Spine Manual Muscle Testing Flexion (C1-2) 4 Good Extension 4 Good Rotation Left 4 Good Rotation Right 4 Good Lateral Flexion Left (C3) 4 Good Lateral Flexion Right (C3) 4 Good Trunk Strength Trunk Manual Muscle Testing Flexion 4 Good Extension 4 Good Rotation Left 4 Good Rotation Right 4 Good Lateral Flexion Left 4 Good Lateral Flexion Right 4 Good Comments TS pain reproduced with resisted ext, flex Shoulder Strength Shoulder Manual Muscle Testing Right Flexion 4 Good Abduction (C5) 4 Good External Rotation 4 Good Internal Rotation 4 Good Left Flexion 4- Good- Abduction (C5) 4- Good- External Rotation 4- Good- Internal Rotation 4- Good- Elbow/Forearm Strength Elbow and Forearm Manual Muscle Testing Right Flexion (C6) 4 Good Extension (C7) 4 Good Left Flexion (C6) 4- Good- Extension (C7) 4- Good- PT-OP-T Assessment and Plan Start: 09/05/24 16:03 Freq: Status: Active Protocol: Document 12/05/24 10:30 NM (Rec: 12/05/24 10:33 NM [id number]) Physical Therapy Assessment Goals Three Impairment pain with lifting Short Term Goal (STG) Pt will be educated on lifting mechanics and body ergonomics to reduce strain on back with repetitive lifting for work activities STG Duration 6 weeks Correction Goal (LTG) Pt will report that he has <3/ 10 back pain with lifting at least 1 gallon for work LTG Duration 12 weeks Two Impairment not performing HEP Correction Goal (LTG) Pt will report compliance with HEP at least 3x/wk in order to maximize progression with PT and transition smoothly into maintenance program upon discharge LTG Duration 12 weeks One Impairment Oswestry 36/100 - pain with ADLs/IADLs, activities Correction Goal (LTG) Pt will report <25% impairment on Oswestry in order to demonstrate improved ADL tolerance and symptom management LTG Duration 12 weeks Assessment Summary Assessment Pt evaluated in September 2024 for back pain. He attended x1 session following evaluation. Pt did not make further appts and canceled remaining appt. No progression toward goals in clinic as pt has not attended appts. Physical Therapy Plan Frequency and Duration Frequency of Treatment 1-2x/wk Duration of treatment (weeks) 12 Plan of Care Start Date 09/06/24 Plan of Care End Date 12/01/24 Therapeutic Interventions Therapeutic Interventions Gait Training,Home Exercise Program,Joint Mobilizations, Manual Therapy,Neuromuscular Re-education,Orthotic/ Prosthetic Management,Patient/ Caregiver Education,Self-Care/ Home Management,Sensory Integration,Soft Tissue Mobilization,Taping, Therapeutic Activities, Therapeutic Exercises Modalities Cold Pack/Ice Massage,Electric Stimulation,Hot Packs, Ultrasound Discharge Physical Therapy Discharge Reasons No Longer Attending PT Discharge Comments Pt has not attended PT since 09/14. Called clinic on 10/19, reports ready for discharge because doing well. Pt plan of care now . Pt will need new referral to return to PT in future if desired Next Visit Focus/Plan Next Note Type Discharge Summary Next Visit Plan discharge from PT
== END 2024-12-06 09:49 | disposition home or self-care (01) ==
LOC: PHYS 14:30
PROVIDERS: Family Provider Family Medicine; PCP Family Medicine; Referring Provider Physician Assistant Medical; Visit Provider Family Medicine
DX: S29.012D Strain of muscle and tendon of back wall of thorax, subsequent encounter (principal); R53.1 Weakness; M25.69 Stiffness of other specified joint, not elsewhere classified; R27.8 Other lack of coordination
CPT/HCPCS: 97110; 97140; 97161

== ENCOUNTER 2025-05-15 18:36 | Observation (INO) | payer OTHER, SELFPAY ==
[2025-05-15] VITALS (10 sets, daily range): BP systolic 94–124; BP diastolic 65–83; PULSE 85–114; RESP 15–56; TEMP 36.1–36.4; O2SAT 95–98; BMI 27.1
[2025-05-15 19:09] LABS: Add Manual Diff / Slide Review NO; Hematocrit 38.4 % (41-53); Hemoglobin 13.8 g/dL (13.5-17.5); Lymphocytes Absolute Auto 1900 /uL (1100-4500); Mean Corpuscular HGB Conc 36.0 % (30-36); Mean Corpuscular Hemoglobin 33.0 PG (26-34); Mean Corpuscular Volume 91.6 fL (80-100); Platelet Count 220 X10^3/uL (150-400)
[2025-05-15 19:12] LABS: INR 1.2 (0.9-1.3); Prothrombin Time 13.1 SECONDS (9.4-12.5)
[2025-05-15] MEDS: ONDANSETRON 4 MG/2 ML INJ IV (19:14)
[2025-05-15 19:15] LABS: Alanine Aminotransferase 16 IU/L (<50); Albumin 3.5 g/dL (3.5-5.0); Albumin Globulin Ratio 1.7 (1.0-2.8); Alkaline Phosphatase 67 U/L (38-126); Blood Urea Nitrogen 37 mg/dL (9-20); Calcium 8.7 mg/dL (8.4-10.2); Carbon Dioxide 22 mmol/L (22-32); Chloride 105 mmol/L (98-107); Estimated Glomerular Filt Rate > 60 mL/min (>60); Globulin 2.1 g/dL (1.7-4.1); Glucose 173 mg/dL (70-99); HEMOLYSIS < 15 (0-50); PTT Partial Thromboplastin Tim 25 SECONDS (25.1-36.5); Potassium 4.2 mmol/L (3.4-5.1); Sodium 134 mmol/L (137-145); Total Protein 5.6 g/dL (6.3-8.2)
--- NOTE | 2025-05-15 20:01 | ED.GIBLEED ---
HPI - GI Bleed General Chief complaint: GI Bleed Stated complaint: near syncope Time Seen by Provider: 05/15/25 18:51 Source: patient and EMS Mode of arrival: EMS History of Present Illness HPI Narrative: 60-year-old gentleman with no significant past medical history presents with dizziness, lightheadedness, and nausea, along with about a dark stool today prior to arrival here. This has never happened to him before but he did have a colonoscopy for 5 years ago that did not show any acute process. He did have some abdominal cramping along with nausea intermittently over the past week button and does not endorse diarrhea or constipation or back pain. He denies any urinary symptoms penile discharge or testicular pain. Other than what is stated 14 point review of system is negative. Related Data Previous Rx's ?Medication ?Instructions ?Recorded tamsulosin 0.4 mg capsule 0.4 mg PO DAILY #30 caps 08/16/24 methocarbamol 750 mg tablet 1,500 mg (2 x 750 mg) PO TID PRN 09/12/24 back pain/muscle spasm #180 tabs Allergies Allergy/AdvReac Type Severity Reaction Status Date / Time acetaminophen (From Tylenol) Allergy Severe facial Verified 05/15/25 18:45 swelling, trouble breathing Review of Systems Review of Systems ROS Unobtainable: All systems reviewed & are unremarkable except as noted in HPI and below Patient History Medical History (Updated 05/15/25 @ 21:43 by Jovanni Mac DO) Hx of intravenous drug use in remission Chest tightness Social History household members: children Smoking Status: Never smoker alcohol intake: never Smoking Status: Never smoker alcohol intake frequency: a few times a month Exam Narrative Exam Narrative: GENERAL: [60] year old patient appears stated age. Well-developed patient, in mild distress. HEAD: Atraumatic. Normocephalic. EYES: Pupils equal round and reactive. Extraocular motions intact. No scleral icterus. No injection or drainage. ENT: Nose without bleeding, purulent drainage. Throat without erythema, tonsillar hypertrophy or exudate. Airway patent. NECK: Trachea midline. Non tender CARDIOVASCULAR: Regular rate and rhythm without murmurs, gallops, or rubs. RESPIRATORY: Clear to auscultation. Breath sounds equal bilaterally. No wheezes, rales, or rhonchi. GASTROINTESTINAL: Abdomen soft, non-tender, nondistended. Rectum: Fecal occult + , no hemorrhoids or fissure EXTREMITIES: No edema or joint tenderness. BACK: Nontender without deformity or crepitance. No flank tenderness. NEURO: AOx3. SKIN: No rash or erythema of visible areas Initial Vital Signs Initial Vital Signs: Vital Signs Pulse Rate 114 H 05/15/25 18:32 Blood Pressure 110/74 05/15/25 18:32 Pulse Oximetry 96 05/15/25 18:32 Course Orders Ordered: ED Orders 05/15/25 18:38 Complete Blood Count AUTO DIFF Stat Comprehensive Metabolic Panel Stat PTT Partial Thromboplastin Garrett Stat Prothrombin Time INR Stat Type and Screen Stat 05/15/25 20:07 CT angio Abd/Pel GI Bleed Stat Complete Blood Count AUTO DIFF Stat Comprehensive Metabolic Panel Stat Lipase Stat Ondansetron HCl (Ondansetron 4 Mg/2 Ml Inj) 4 mg IV NOW PRN PRN Reason: Nausea And Vomiting Last Admin: 05/15/25 19:14 Dose: 4 mg Documented By: Ondansetron HCl (Ondansetron 4 Mg Odt) 4 mg PO NOW PRN PRN Reason: Nausea And Vomiting Vital Signs Vital signs: Vital Signs - 8 hr 05/15/25 18:32 05/15/25 18:32 05/15/25 18:45 Temperature 97.6 F Pulse Rate 114 H 98 H Respiratory Rate 18 Blood Pressure 110/74 110/74 Pulse Oximetry 96 98 Oxygen Delivery Method Room Air 05/15/25 19:00 05/15/25 19:16 05/15/25 19:16 Temperature Pulse Rate 97 H 92 H Respiratory Rate 24 15 Blood Pressure 112/66 Pulse Oximetry 97 98 Oxygen Delivery Method 05/15/25 19:30 05/15/25 19:30 05/15/25 20:00 Temperature Pulse Rate 89 Respiratory Rate 27 H Blood Pressure 96/65 94/66 Pulse Oximetry 96 Oxygen Delivery Method 05/15/25 20:00 05/15/25 20:32 05/15/25 20:50 Temperature Pulse Rate 86 93 H 86 Respiratory Rate 21 21 56 H Blood Pressure Pulse Oximetry 97 95 98 Oxygen Delivery Method 05/15/25 20:50 05/15/25 21:00 05/15/25 21:00 Temperature Pulse Rate 86 Respiratory Rate 21 Blood Pressure 123/83 124/72 Pulse Oximetry 98 Oxygen Delivery Method Room Air MDM - GI Bleed Lab Data 05/15/25 18:38 05/15/25 18:38 Labs: Lab Results 05/15/25 Range/Units 18:38 WBC 9.8 (4.5-11.0) X10^3/uL RBC 4.19 L (4.5-5.9) X10^6/uL Hgb 13.8 (13.5-17.5) g/dL Hct 38.4 L (41-53) % MCV 91.6 (80-100) fL MCH 33.0 (26-34) PG MCHC 36.0 (30-36) % RDW 13.2 (11.6-14.8) % Plt Count 220 (150-400) X10^3/uL Neut % (Auto) 69.4 (50-75) % Lymph % (Auto) 19.3 L (25-40) % Larue % (Auto) 8.5 (3-14) % Eos % (Auto) 1.6 L (2-4) % Baso % (Auto) 1.2 (0-2) % Neut # (Auto) 6800 (8985-4115) /uL Lymph # (Auto) 1900 (1511-8631) /uL Larue # (Auto) 800 (0-900) /uL Eos # (Auto) 200 (0-450) /uL Baso # (Auto) 100 (0-100) /uL PT 13.1 H (9.4-12.5) SECONDS INR 1.2 (0.9-1.3) APTT 25 L (25.1-36.5) SECONDS Sodium 134 L (137-145) mmol/L Potassium 4.2 (3.4-5.1) mmol/L Chloride 105 (98-107) mmol/L Carbon Dioxide 22 (22-32) mmol/L BUN 37 H (9-20) mg/dL Creatinine 1.08 (0.66-1.25) mg/dL Estimated GFR > 60 (>60) mL/min BUN/Creatinine Ratio 34.3 H (6-22) Glucose 173 H (70-99) mg/dL Calcium 8.7 (8.4-10.2) mg/dL Total Bilirubin 1.0 (0.2-1.3) mg/dL AST 19 (17-59) IU/L ALT 16 (<50) IU/L Alkaline Phosphatase 67 (38-126) U/L Total Protein 5.6 L (6.3-8.2) g/dL Albumin 3.5 (3.5-5.0) g/dL Globulin 2.1 (1.7-4.1) g/dL Albumin/Globulin Ratio 1.7 (1.0-2.8) Blood Type O Positive Antibody Screen Negative Point of Care Testing Stool Occult Blood Positive Imaging Data CT scan - abdomen/pelvis: Radiologist's Impression: [address] [address] [address] Scan Report Signed Patient: Carlos Ulloa II MR#: [id number] : 1965 Acct:[id number] Age/Sex: 60 / M Date of Service: 05/15/25 Loc: ED Accession Number: [id number] Procedure: CT angio Abd/Pel GI Bleed Ordering Provider: Jovanni Mac D.O. PROCEDURE: CT ANGIO ABD/PEL GI BLEED INDICATIONS: gi bleed, dark tarry stool, syncope TECHNIQUE: After the administration of intravenous contrast, 2.5 mm thick sections acquired from the diaphragm to the symphysis. 10 mm maximum-intensity projection (MIP) reformats were then acquired. For radiation dose reduction, the following was used: automated exposure control. COMPARISON: None. FINDINGS: Image Quality: Diagnostic. Abdominal aorta: No aortic aneurysm or evidence of acute aortic syndrome. Mesenteric arteries: Patent without hemodynamically significant stenosis. Renal arteries: Patent without hemodynamically significant stenosis. OTHER: Lower Chest: No significant findings. Liver: No solid mass. Gallbladder: No radiopaque gallstones or wall thickening. Biliary ducts: No biliary dilation. Pancreas: No ductal dilation. Spleen: Size is within normal limits. Adrenal Glands: No adrenal nodules. Kidneys and Ureters: No hydronephrosis. No solid mass. No complex renal cystic lesion which requires follow up. Stomach and Bowel: Normal colonic caliber, without significant wall thickening. On the unenhanced images there is hyperdense material in the distal ileum as well as the right colon. No areas of abnormal contrast accumulation. Peritoneum: No abnormal intraperitoneal fluid. No free air. Ventral Wall: No hernia. Abdominal Nodes: No retroperitoneal or mesenteric adenopathy by size criteria. Vessels: Aorta and inferior vena cava are normal in size. PELVIS: Pelvic Organs: Unremarkable. Bladder: Unremarkable. Pelvic Nodes: No enlarged lymph nodes. Miscellaneous: No inguinal hernias are seen. Bones: No aggressive osseous abnormality. IMPRESSION: 1. No signs of active GI bleeding at this time. 2. Hyperdense material on the unenhanced images in the distal ileum right colon, may be due to hemorrhage. This decreases the sensitivity of CT, GI bleeding scan may be considered for better assessment, also for intermittent GI bleeding. MDM Narrative Medical decision making narrative: All lab work, vital signs, nurse triage note, medication list, previous ER visits, and all imaging studies reviewed. Case discussed with who has graciously accepted the patient for inpatient admission. Differential diagnosis includes hemorrhoids, diverticular bleed, ulcer. CT abdomen and pelvis shows no active signs of GI bleed. Hyperdense material in the unenhanced images in the distally in right colon may be due to hemorrhage. Started on lactated Ringer's 1 L bolus and Protonix here. Case discussed with Dr. Rodrigez who has graciously accepted the patient for inpatient admission. Clear liquid diet, NPO after midnight. And then to start colon prep tomorrow for colonoscopy on . Discharge Plan Departure Patient Disposition: Admitted As Inpatient Clinical Impression: GI (gastrointestinal bleed) Qualifiers: GI bleed type/associated pathology: unspecified gastrointestinal hemorrhage type Qualified Code(s): K92.2 - Gastrointestinal hemorrhage, unspecified Admit Date/Time: 05/15/25 21:40 Admit Provider: Andreas Rodrigez
--- NOTE | 2025-05-15 20:07 | DI.CT.S_ITS ---
PROCEDURE: CT ANGIO ABD/PEL GI BLEED INDICATIONS: gi bleed, dark tarry stool, syncope TECHNIQUE: After the administration of intravenous contrast, 2.5 mm thick sections acquired from the diaphragm to the symphysis. 10 mm maximum-intensity projection (MIP) reformats were then acquired. For radiation dose reduction, the following was used: automated exposure control. COMPARISON: None. FINDINGS: Image Quality: Diagnostic. Abdominal aorta: No aortic aneurysm or evidence of acute aortic syndrome. Mesenteric arteries: Patent without hemodynamically significant stenosis. Renal arteries: Patent without hemodynamically significant stenosis. OTHER: Lower Chest: No significant findings. Liver: No solid mass. Gallbladder: No radiopaque gallstones or wall thickening. Biliary ducts: No biliary dilation. Pancreas: No ductal dilation. Spleen: Size is within normal limits. Adrenal Glands: No adrenal nodules. Kidneys and Ureters: No hydronephrosis. No solid mass. No complex renal cystic lesion which requires follow up. Stomach and Bowel: Normal colonic caliber, without significant wall thickening. On the unenhanced images there is hyperdense material in the distal ileum as well as the right colon. No areas of abnormal contrast accumulation. Peritoneum: No abnormal intraperitoneal fluid. No free air. Ventral Wall: No hernia. Abdominal Nodes: No retroperitoneal or mesenteric adenopathy by size criteria. Vessels: Aorta and inferior vena cava are normal in size. PELVIS: Pelvic Organs: Unremarkable. Bladder: Unremarkable. Pelvic Nodes: No enlarged lymph nodes. Miscellaneous: No inguinal hernias are seen. Bones: No aggressive osseous abnormality. IMPRESSION: 1. No signs of active GI bleeding at this time. 2. Hyperdense material on the unenhanced images in the distal ileum right colon, may be due to hemorrhage. This decreases the sensitivity of CT, GI bleeding scan may be considered for better assessment, also for intermittent GI bleeding. Dictated by: Jeffrey Hernandez M.D. on 05/15/2025 at 20:51 Approved by: Jeffrey Hernandez M.D. on 05/15/2025 at 20:59
[2025-05-16] MEDS: PANTOPRAZOLE 40 MG VIAL IV (00:01)
[2025-05-16] MEDS: LACTATED RINGERS 1,000 ML 100 ML IV ×2 (06:45→17:24)
[2025-05-16 07:42] LABS: Add Manual Diff / Slide Review NO; Hematocrit 32.6 % (41-53); Hemoglobin 11.7 g/dL (13.5-17.5); Lymphocytes Absolute Auto 1300 /uL (1100-4500); Mean Corpuscular HGB Conc 35.8 % (30-36); Mean Corpuscular Hemoglobin 32.9 PG (26-34); Mean Corpuscular Volume 91.8 fL (80-100); Platelet Count 154 X10^3/uL (150-400)
[2025-05-16 07:47] LABS: Blood Urea Nitrogen 36 mg/dL (9-20); Calcium 8.4 mg/dL (8.4-10.2); Carbon Dioxide 29 mmol/L (22-32); Chloride 105 mmol/L (98-107); Estimated Glomerular Filt Rate > 60 mL/min (>60); Glucose 114 mg/dL (70-99); HEMOLYSIS < 15 (0-50); Potassium 4.4 mmol/L (3.4-5.1); Sodium 136 mmol/L (137-145)
[2025-05-16 08:54] VITALS: BP 127/77; PULSE 77; RESP 18; TEMP 36.1; O2SAT 99
--- NOTE | 2025-05-16 08:55 | PM.HP.IH.1 ---
History of Present Illness History of Present Illness Date Patient Seen: 05/16/25 Time Patient Seen: 08:55 Chief complaint: near syncope Narrative: Carlos is a 60-year-old man who presented to the emergency department last night because of melena and near-syncope. He reports that when he came from work yesterday he felt faint and needed to go straight to the toilet where he had melena. He then came to the emergency department. A CTA was performed which did not show an obvious source of bleed but there was some radiodense material in the distal terminal ileum and right colon. He did have a colonoscopy [place] [address] Gonzalez which was normal and he was given a 10 year interval. He denies NSAID or corticosteroid use. Hemoglobin last night in the ER was 13.8 which is down from his baseline of about 16. This morning it is 11.7. [facility] Medical History (Updated 05/15/25 @ 21:43 by Jovanni Mac DO) Hx of intravenous drug use in remission Chest tightness Social History household members: children Smoking Status: Former smoker alcohol intake: never Meds Home Medications and Allergies Home Medications ?Medication ?Instructions ?Recorded ?Confirmed ?Type tamsulosin 0.4 mg capsule 0.4 mg PO DAILY #30 caps 08/16/24 05/15/25 Rx Allergies Allergy/AdvReac Type Severity Reaction Status Date / Time acetaminophen (From Tylenol) Allergy Severe facial Verified 05/15/25 18:45 swelling, trouble breathing Exam Vital Signs (past 8 hours): - 05/16/25 03:00 05/16/25 07:00 Oxygen Delivery Method Room Air Room Air Oxygen Delivery Method Room Air Oxygen Flow Rate 0 Const General: healthy appearing Resp Effort & Inspection: normal respiratory effort Objective Labs 05/16/25 07:30 05/16/25 07:30 Labs: Laboratory Results - last 24 hr 05/15/25 05/16/25 18:38 07:30 WBC 9.8 6.9 RBC 4.19 L 3.55 L Hgb 13.8 11.7 L Hct 38.4 L 32.6 L MCV 91.6 91.8 MCH 33.0 32.9 MCHC 36.0 35.8 RDW 13.2 12.9 Plt Count 220 154 Neut % (Auto) 69.4 69.7 Lymph % (Auto) 19.3 L 19.2 L Schleicher % (Auto) 8.5 8.6 Eos % (Auto) 1.6 L 1.2 L Baso % (Auto) 1.2 1.3 Neut # (Auto) 6800 4800 Lymph # (Auto) 1900 1300 Schleicher # (Auto) 800 600 Eos # (Auto) 200 100 Baso # (Auto) 100 100 PT 13.1 H INR 1.2 APTT 25 L Sodium 134 L 136 L Potassium 4.2 4.4 Chloride 105 105 Carbon Dioxide 22 29 BUN 37 H 36 H Creatinine 1.08 0.99 Estimated GFR > 60 > 60 BUN/Creatinine Ratio 34.3 H 36.4 H Glucose 173 H 114 H Calcium 8.7 8.4 Total Bilirubin 1.0 AST 19 ALT 16 Alkaline Phosphatase 67 Total Protein 5.6 L Albumin 3.5 Globulin 2.1 Albumin/Globulin Ratio 1.7 Blood Type O Positive Antibody Screen Negative Assessment & Plan Assessment and plan (1) GI (gastrointestinal bleed): Qualifiers: GI bleed type/associated pathology: unspecified gastrointestinal hemorrhage type Qualified Code(s): K92.2 - Gastrointestinal hemorrhage, unspecified Status: Acute Plan Bowel prep today Plan for EGD and colonoscopy tomorrow Time-Based Coding :: [TOTAL MINUTES] spent with patient and on the chart (including review of chart, obtaining history, exam, reviewing outside data, placing orders, documenting exam and treatment plan, and counseling patient) on [DATE]. 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
[2025-05-16] MEDS: PEG3350/SOD SULF,BICARB,CL/KCL 4,000 ML SOLUTION 2000 ML PO (18:12)
--- NOTE | 2025-05-16 18:16 | PC.NURSE ---
EGD/colonoscopy with Dr. Rodrigez scheduled for 05/17 @ 8027. Golytely prep started at 6pm per order, see MAR. Verbal and written instructions provided to patient. Questions encouraged and answered.
--- NOTE | 2025-05-17 | PATH_ITS ---
[facility] Accession Number: [id number] No. of containers..03 Tissue . 01 Material submitted: . PART A: duodenum bulb - DUODENAL BULB PART B: stomach - ANTRUM PART C: esophagus - ESOPHAGUS, DISTAL . 01 Diagnosis: A. DUODENUM, BIOPSY: Mild active infilammation with foveolar metaplasia, consistent with peptic duodenitis. Negative for features of sprue, dysplasia, or malignancy. . B. GASTRIC ANTRUM, BIOPSY: Helicobacter pylori gastritis. A moderate number of forms morphologically consistent with Helicobacter pylori seen on H/E stain. Negative for intestinal metaplasia. Negative for dysplasia or malignancy. . C. DISTAL ESOPHAGUS, BIOPSY: Squamocolumnar junctional mucosa with mild chronic inflammation. Negative for specialized intestinal metaplasia, dysplasia, or malignancy. [facility] 05/25/2025 1540 Local . 01 Electronically signed: . Adolph Adams MD, PhD, Pathologist NPI- [id number] . 01 Gross description: . A. Received in formalin with two identifiers and duodenal bulb, is a single osorio soft tissue fragment, 0.3 cm in greatest dimension, submitted entirely in A1. B. Received in formalin with two identifiers and antrum, are three osorio soft tissue fragments, 0.3 to 0.4 cm in greatest dimension, submitted entirely in B1. C. Received in formalin with two identifiers and distal esophagus, are three osorio soft tissue fragments, 0.2 to 0.3 cm in greatest dimension, submitted entirely in C1. ([id number]) /MRV 05/24/2025 1757 Local . 01 Pathologist provided ICD-10: K29.80, K29.70, B96.81, K20.80 . 01 CPT . 291494, 165367, 210071 Specimen Comment: A courtesy copy of this report has been sent to [phone] Performed at: [address] [address], [place], [place] [id number] MD Juan Barrientos MD Phone: [phone]
[2025-05-17 06:04] LABS: Add Manual Diff / Slide Review NO; Hematocrit 29.0 % (41-53); Hemoglobin 10.6 g/dL (13.5-17.5); Lymphocytes Absolute Auto 1200 /uL (1100-4500); Mean Corpuscular HGB Conc 36.4 % (30-36); Mean Corpuscular Hemoglobin 33.2 PG (26-34); Mean Corpuscular Volume 91.1 fL (80-100); Platelet Count 135 X10^3/uL (150-400)
[2025-05-17 06:27] LABS: Blood Urea Nitrogen 17 mg/dL (9-20); Calcium 8.2 mg/dL (8.4-10.2); Carbon Dioxide 29 mmol/L (22-32); Chloride 105 mmol/L (98-107); Estimated Glomerular Filt Rate > 60 mL/min (>60); Glucose 99 mg/dL (70-99); HEMOLYSIS < 15 (0-50); Potassium 4.1 mmol/L (3.4-5.1); Sodium 137 mmol/L (137-145)
[2025-05-17 09:54] VITALS: BP 122/77; PULSE 77; RESP 18; TEMP 36.6; O2SAT 99
[2025-05-17 14:45] VITALS: BP 135/86; PULSE 67; RESP 16; TEMP 36.2; O2SAT 98
[2025-05-17] MEDS: LACTATED RINGERS 1,000 ML 42 ML IV (14:47)
--- NOTE | 2025-05-17 15:10 | PM.PREOP ---
Pre-operative Note COVID-19 COVID-19 status: Not tested Interval Note History & Physical reviewed/Exam performed by Physician: Yes Changes to H&P: No ASA Class (for procedural sedation): II
--- NOTE | 2025-05-17 15:55 | PM.OP.EC ---
Operative Date/Time/Diagnoses Date of procedure: 05/17/25 Time of procedure: 15:55 Pre-op diagnosis: Melena Post-op diagnosis: same Procedure & Clinicians Study performed: Esophagogastroduodenoscopy and colonoscopy Same procedure(s) as scheduled: Yes Surgeon: Andreas Rodrigez Anesthesia Type: MAC +/- Procedure Notes Procedure in detail: Surgeon: Andreas Rodrigez MD Anesthesia: Azeb Malin CRNA Procedure in detail: A timeout was performed. A bite blocked was placed and monitors were attached to the patient. The patient was positioned in the left lateral decubitus position. Sedation was administered. Once the patient was sedated the endoscope was inserted through the bite block and passed through the esophagus and stomach and into the duodenum. The second portion of the duodenum appeared normal. The duodenal bulb was inflamed with at least one ulcer. There was no active bleeding. There was no old blood or clot visible. Biopsies were taken of the adjacent mucosa with cold forceps. We then withdrew the scope into the stomach. There was rather severe antritis and at least two antral ulcers with no active bleeding or old blood or clot. Biopsies were taken of the adjacent mucosa with cold forceps. The endoscope was retroflexed and no hiatal hernia was seen. The endoscope was straightned and withdrawn into the esophagus. Was some irregular patchy inflamed mucosa at the distal esophagus and biopsies were taken with the cold forceps. EGD findings: Duodenitis, antritis and distal esophagitis. Ulcers in the antrum and duodenal bulb Next we repositioned the patient for a colonoscopy. A digital rectal exam was performed and was normal. The colonoscope was inserted and advanced to the cecum. The appendiceal orifice was identified and photographed. The scope was slowly withdrawn over greater than 6 minutes. No polyps or other abnormalities were found. The scope was retroflexed in the rectum and no other abnormalities were seen. Colonoscopy findings: Normal colon Total procedural EBL: 5 mL Scope withdrawal time: 8 minutes Sedation minutes: 24 minutes Post-procedure Recommendations: Colonscopy in 10 years Disposition: PACU
[2025-05-17 15:58] VITALS: BP 88/52; PULSE 66; RESP 16; TEMP 36.1; O2SAT 98
[2025-05-17 16:03] VITALS: BP 97/53; PULSE 64; RESP 16; O2SAT 97
[2025-05-17 16:07] VITALS: BP 97/58; PULSE 66; RESP 14; O2SAT 98
--- NOTE | 2025-05-17 16:09 | CM.DANOTE ---
Patient is a 60 yo male who was admitted OBS Status on 05/15/25 for Syncopal episode. Pt has [employer] for insurance and his PCP is Dr. Earl Coburn. EMR was reviewed. Per Surgeon, pt with GI bleed and to have EGD and colonoscopy today 05/17 1530 and pending results might be able to d/c home tonight vs tomorrow. Patient resides in [place] and is active and independent at baseline and per RN no concerns noted at this time. No hx of admits to [facility]. Due to triage needs, no bedside assessment completed at this time. Plan: SW to follow for scope results to determine any discharge planning needs and likely return home via friend POV and outpt f/u. SW to notify TCM team of outpt f/u with PCP Dr. Coburn at discharge. NICK Castanon
--- NOTE | 2025-05-17 17:05 | PC.NURSE ---
DIPESH Sousa removed PIV, pt tolerated well. 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 All belongings with patient. Provided pt education on medications and follow up as well as diet. Pt stated all questions answered. Pt escorted via WC by DIPESH Sousa to main entrace to meet friend for ride home via POV.
== END 2025-05-17 17:07 | disposition home or self-care (01) ==
LOC: ED 19:12 → AC 21:43
PROVIDERS: Admitting Provider Surgery; Emergency Provider Family Medicine; Family Provider Family Medicine; PCP Family Medicine; Referring Provider Family Medicine; Visit Provider Surgery
PROC: 0DJ08ZZ Inspection of Upper Intestinal Tract, Via Natural or Artificial Opening Endoscopic (ICD-10-PCS; CPT 43239; principal; 2025-05-17 15:30)
PROC: 0DJD8ZZ Inspection of Lower Intestinal Tract, Via Natural or Artificial Opening Endoscopic (ICD-10-PCS; CPT 45378; 2025-05-17 15:30)
DX: K29.80 Duodenitis without bleeding (principal); R55 Syncope and collapse; K29.50 Unspecified chronic gastritis without bleeding; K20.90 Esophagitis, unspecified without bleeding; K26.9 Duodenal ulcer, unspecified as acute or chronic, without hemorrhage or perforation; K25.9 Gastric ulcer, unspecified as acute or chronic, without hemorrhage or perforation
CPT/HCPCS: 43239; 45378; 36415; 74174; 80048; 80053; 82272; 85025; 85610; 85730; 86850; 86900; 86901; 96361; 96374; 96375; 99284; G0378; J2405; J2470; J2704; Q9967